=== PATIENT | female | born 1935 | race Caucasian/White ===

== ENCOUNTER 2023-02-03 05:52 | Observation (INO) | payer OTHER ==
[2023-01-30 12:03] LABS: Absolute Lymphocytes (CBC) 1.8 K/uL (0.7-4.9); Hematocrit 42.8 % (36.0-45.0); Lymphocytes % 21.7 % (15.3-44.8); MCV 95.8 fL (80-100); MPV 8.9 fL (7.6-11.3); RBC Red Blood Cell Count 4.47 M/uL (3.86-4.86)
[2023-01-30 12:07] LABS: Protime INR 0.95
[2023-01-30 12:24] LABS: Specific Gravity 1.015 (1.005-1.030); Transitional Epithelial <5 /HPF (None Seen); Urine Bacteria >50 /HPF (<20); Urine Bilirubin NEGATIVE (Negative); Urine Blood Negative (Negative); Urine Clarity Turbid (Clear); Urine Color Yellow (Yellow); Urine Glucose NEGATIVE (Negative); Urine Mucus Slight /HPF (None Seen); Urine Protein TRACE (Negative); Urine Urobilinogen Normal (Normal); Urine WBC Clump Occasional /HPF (None Seen); Urine pH 5.5 (5.0-7.0)
[2023-01-30 12:28] LABS: Albumin 3.8 g/dL (3.4-5.0); Bilirubin Total 0.5 mg/dL (0.2-1.0); Potassium 3.8 mEq/L (3.5-5.1); Protein, Total 8.3 g/dL (6.4-8.2)
--- NOTE | 2023-01-30 13:03 | RAD REPORT ---
EXAM DESCRIPTION: Radha Lynn And Emerald (2 Views)01/30/2023 12:38 pm CLINICAL HISTORY: Preop for hip surgery COMPARISON: None FINDINGS: The lungs are mildly to moderate hyperaerated. The lungs appear clear of acute infiltrate. The heart is borderline enlarged IMPRESSION: No acute abnormalities displayed
--- NOTE | 2023-01-30 13:44 | EKG ---
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
[2023-02-03] MEDS ORDERED: CELECOXIB 100 MG CAPSULE ONE (06:27)
[2023-02-03] MEDS ORDERED: CEFAZOLIN SODIUM 2 GM/VIAL ONE (06:27)
[2023-02-03] MEDS ORDERED: GABAPENTIN 100 MG CAP ONE (06:28)
[2023-02-03] MEDS ORDERED: Ringers Lactate 1,000 ML IV ONE ×2 (06:29→10:16)
[2023-02-03] MEDS ORDERED: ACETAMINOPHEN 500 MG TAB ONE (06:29)
[2023-02-03] MEDS ORDERED: Oxycodone HCl/Acetaminophen 1 TAB TAB ONE (06:29)
[2023-02-03] MEDS ORDERED: LIDOCAINE 2% MPF 5 ML VIAL ONE (06:54)
[2023-02-03] MEDS ORDERED: MIDAZOLAM HCL 2 MG/2 ML INJ ONE (06:54)
[2023-02-03] MEDS ORDERED: LIDOCAINE 1% MPF 5 ML VIAL ONE (06:54)
[2023-02-03] MEDS ORDERED: EPINEPHRINE/PF 1 MG/ML AMP ONE ×2 (06:54→09:04)
[2023-02-03] MEDS ORDERED: FENTANYL CITR 100 MCG/2 ML ONE (06:54)
[2023-02-03] MEDS ORDERED: propofoL 200 MG/20 ML VIAL IV ONE ×2 (06:55→08:33)
[2023-02-03] MEDS ORDERED: BUPIVACAINE 0.75% (PF) 2 ML SP ONE (07:01)
[2023-02-03] MEDS ORDERED: dexAMETHasone 10 MG/ML VIAL ONE ×2 (07:26→09:04)
[2023-02-03] MEDS ORDERED: DIPHENHYDRAMINE 50 MG/ML VIAL ONE (07:27)
[2023-02-03] MEDS: TRANEXAMIC ACID 1,000 MG/10 ML VIAL IV ONE ×2 (07:47→09:45)
[2023-02-03] MEDS ORDERED: NS 0.9% VIAL 30 ML ONE (07:48)
[2023-02-03] MEDS ORDERED: EPHEDRINE SULF 50 MG/ML VIAL ONE (08:33)
[2023-02-03] MEDS ORDERED: BUPIVACAINE 0.25% PF 30 ML VIAL ONE (09:04)
--- NOTE | 2023-02-03 09:08 | RAD REPORT ---
EXAM DESCRIPTION: RAD - Hip Right 1 View - 02/03/2023 8:51 am CLINICAL HISTORY: RT TOTAL HIP REPLACEMENT COMPARISON: No comparisonsHip Right 2 View dated 09/18/2022 TECHNIQUE: Right hip, 2 views. FINDINGS: A right hip prothesis has been placed. The central column of the femoral stem is superiorl y displaced relative to the acetabular cup. Soft tissue gas in the vicinity of the arthroplasty. Ryan tional metallic hardware overlies the central lower pelvis. IMPRESSION: Right hip arthroplasty with some superior positioning of the femoral stem relative to th e acetabular cup as above.
--- NOTE | 2023-02-03 09:43 | RAD REPORT ---
EXAM DESCRIPTION: RAD - Hip Right 1 View - 02/03/2023 9:25 am CLINICAL HISTORY: RT TOTAL HIP COMPARISON: <Comparisons> TECHNIQUE: Right hip, 2 views. FINDINGS: Femoral stem of the right hip prosthesis is removed on the initial image. Revised femoral stem is present on the subsequent images, and appears to be in expected location. Metallic hardware a gain overlies the perineum/left lower pelvis. IMPRESSION: Postoperative right hip arthroplasty as above.
--- NOTE | 2023-02-03 10:05 | P.BOP ---
Preoperative diagnosis: right hip arthritis Postoperative diagnosis: same Primary procedure: right total hip arthoplasty Estimated blood loss: 150 ccs Anesthesia: Spinal Complications: None Transferred to: Recovery Room Condition: Good
[2023-02-03] MEDS ORDERED: ONDANSETRON 4 MG/2 ML VIAL IV PRN (10:06)
[2023-02-03] MEDS ORDERED: ROPIVACAINE HCL 20 ML ONE (10:13)
[2023-02-03] MEDS ORDERED: ROPLVACAINE HCL 20 ML ONE (10:13)
--- OUTSIDE RECORDS SUMMARY | 2023-02-03 10:33 | XMS REPORT | Continuity of Care Document ---
:1935 Author Organization [facility] t Address [address] [place] [address]. [address] [place] [address] Care Team Providers Name Role Phone Vasquez Armendariz Primary Care Physician NELDA RODRIGUEZ Attending Clinician Unavailable NELDA RODRIGUEZ Attending Clinician Unavailable LIYA EDDY Attending Clinician Unavailable Doctor Unassigned, [place] Attending Clinician Unavailable Marilyn Whitfield RN Attending Clinician Unavailable LAURENT FONTANA Attending Clinician Unavailable Bernice Bradley S Attending Clinician Ysabel SCHWAB, Rosa Tejeda Attending Clinician Lisha SCHWAB, Luciano Whitney Attending Clinician Laurent Fontana MD Attending Clinician oLwell Mcdowell MD Attending Clinician Rick Mckenzie MD Attending Clinician Mary Banks MD Attending Clinician ANTOINE SINGLETON Attending Clinician Unavailable Antoine Ledezma Attending Clinician Raquel Martinez Attending Clinician Liya Eddy MD Attending Clinician DANITA YO Attending Clinician Unavailable Lab, Adc Fam Pob I Attending Clinician Unavailable MARY BANKS Attending Clinician Unavailable RAQUEL GRADY Attending Clinician Unavailable LUCIANO RODRIGES Admitting Clinician Unavailable Luciano Rodriges MD Admitting Clinician LAURENT FONTANA Admitting Clinician Unavailable Laurent Fontana MD Admitting Clinician Payers Payer Name Policy Type Policy Number Effective Date Expiration Date S ource Problems Condition Condition Condition Status Onset Resolution Last Treating Co mments Source Name Details Category Date Date Treatment Clinician Date Rectal Rectal Disease Active Univers bleeding bleeding 2-23 ity of 00:00: [place] [address] Medical Branch Total knee Total knee Disease Active U nivers replacemen replacemen 5-20 it y of t status t status 00:00: [place] [address] Medical Branch Primary Primary Disease Active Overview: Univ ers osteoarthr osteoarthr 5-14 Formattin ity of itis of itis of 00:00: g of this [place] right knee right knee 00 note Me dical might be Branch different from the original. 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 00:00: [place] arthroplas arthroplas 00 Me dical ty ty Branch Status Status Disease Active Univers post total post total 17 it y of shoulder shoulder 00:00: [place] arthroplas arthroplas 00 Me dical ty ty Branch Hyperlipid Hyperlipid Disease Active U nivers emia emia ity of [facility] Hypertensi Hypertensi Disease Active U nivers on on ity of [facility] Allergies, Adverse Reactions, Alerts Allergy Allergy Status Severity Reaction(s) Onset Inactive Treating Comm ents Source Name Type Date Date Clinician NO KNOWN Drug Active Univers ALLERGIE Class ity of [facility] Social History Social Habit Start Date Stop Date Quantity Comments Source History SDOH Social Unive rsity of [facility] Med ical Together Branch History SDOH Social Unive rsity of [facility] Branch History SDOH Social Unive rsity of [facility] Medical Membership Branch History SDOH Social Unive rsity of [facility] Medical Meetings Branch Exposure to 2022-12-26 2023-01-05 Not sure University of SARS-CoV-2 (event) 00:00:00 13:54:00 [place] [facility] Alcohol intake 2023-01-05 2023-01-05 Current drinker Unive rsity of 00:00:00 00:00:00 of alcohol [place] [facility] (finding) Branch History SDOH Social 2022-10-30 2022-10-30 5 Unive rsity of Connections Phone 00:00:00 00:00:00 [place] [facility] History SDOH Social 2022-10-30 2022-10-30 3 Unive rsity of [facility] Living 00:00:00 00:00:00 [place] [facility] History SDOH 2022-10-30 2022-10-30 3 University o f Physical Activity 00:00:00 00:00:00 [place] [facility] DPW Branch History SDOH 2022-10-30 2022-10-30 6 University o f Physical Activity 00:00:00 00:00:00 [place] [facility] MPS Branch History SDOH 2022-10-30 2022-10-30 5 University o f Financial 00:00:00 00:00:00 [place] [facility] History SDOH Food 2022-10-30 2022-10-30 1 Univers ity of Worry 00:00:00 00:00:00 [place] [facility] History SDOH Food 2022-10-30 2022-10-30 1 Univers ity of Scarcity 00:00:00 00:00:00 [place] [facility] History SDOH 2022-10-30 2022-10-30 2 University o f Transport Med 00:00:00 00:00:00 [place] [facility] History SDOH 2022-10-30 2022-10-30 2 University o f Transport Non-Med 00:00:00 00:00:00 [place] [facility] History SDOH 2022-10-30 2022-10-30 1 University o f Alcohol Frequency 00:00:00 00:00:00 [place] [facility] History SDOH 2022-10-30 2022-10-30 0 University o f Alcohol Std Drinks 00:00:00 00:00:00 [place] [facility] History SDOH 2022-10-30 2022-10-30 1 University o f Alcohol Binge 00:00:00 00:00:00 [place] [facility] Tobacco use and 2022-08-11 2022-08-11 Smokeless Universit y of exposure 00:00:00 00:00:00 tobacco non-user [facility] Comment 2016-12-10 2016-12-10 Rare Universit y of 00:00:00 00:00:00 [facility] Sex Assigned At [birth year] Universit y of 00:00:00 00:00:00 [facility] Smoking Status Start Date Stop Date Source Never smoked tobacco [facility] Medications Ordered Filled Start Stop Current Ordering Indication Dosage Frequency Signature Comments Components Source Medication Medication Date Date Medication? Clinician (SIG) Name Name estradioL 2022-0 Yes [id number] Apply 1g Univers (ESTRACE) 5-08 vaginally ity o f 0.01 % (0.1 00:00: at bedtime [place] mg/gram) 00 2-3 times Medica l vaginal per week [place] cream estradioL 2022-0 Yes [id number] Apply 1g Univers (ESTRACE) 5-08 vaginally ity o f 0.01 % (0.1 00:00: at bedtime [place] mg/gram) 00 2-3 times Medica l vaginal per week [place] cream estradioL 2022-0 Yes [id number] Apply 1g Univers (ESTRACE) 5-08 vaginally ity o f 0.01 % (0.1 00:00: at bedtime [place] mg/gram) 00 2-3 times Medica l vaginal per week [place] cream cefpodoxime 2022-0 Yes 100mg Take 1 Uni vers 100 mg 4-30 tablet by ity of tablet 00:00: mouth in [place] [address] the Medical morning Branch and 1 tablet in the evening. cefpodoxime 2023-0 Yes 100mg Take 1 Uni vers 100 mg 4-30 tablet by ity of tablet 00:00: mouth in [place] 00 the Medical morning Branch and 1 tablet in the evening. cefpodoxime 2023-0 Yes 100mg Take 1 Uni vers 100 mg 4-30 tablet by ity of tablet 00:00: mouth in [place] 00 the Medical morning Branch and 1 tablet in the evening. multivitami 2022-0 Yes 1{tbl} Take 1 Un willem n, 3-05 tablet by ity of [place]-minerals 13:39: mouth [place] (COMPLETE 51 daily. Medical MULTIVITAMI Branch N) tablet cholecalcif 2022-0 Yes 5000U Take 5,000 Univers kiki, 3-05 Units by ity of vitamin D3, 13:39: mouth [place] (VITAMIN 51 daily. Medical D3) 1,000 Branch unit tablet aspirin 81 2023-0 Yes 81mg Take 81 mg U nivers mg EC 3-05 by mouth ity of tablet 13:39: daily. [place] [address] Medical Branch amLODIPine 2023-0 Yes 5mg Take 1 Unive rs 5 mg tablet 3-05 tablet by ity of 13:39: mouth in [place] [address] the Medical morning. Branch multivitami 2023-0 Yes 1{tbl} Take 1 Un willem n, 3-05 tablet by ity of [place]-minerals 13:39: mouth [place] (COMPLETE 51 daily. Medical MULTIVITAMI Branch N) tablet cholecalcif 2023-0 Yes 5000U Take 5,000 Univers kiki, 3-05 Units by ity of vitamin D3, 13:39: mouth [place] (VITAMIN 51 daily. Medical D3) 1,000 Branch unit tablet aspirin 81 2023-0 Yes 81mg Take 81 mg U nivers mg EC 3-05 by mouth ity of tablet 13:39: daily. [place] [address] Medical Branch amLODIPine 2023-0 Yes 5mg Take 1 Unive rs 5 mg tablet 3-05 tablet by ity of 13:39: mouth in [place] [address] the Medical morning. Branch multivitami 2023-0 Yes 1{tbl} Take 1 Un willem n, 3-05 tablet by ity of [place]-minerals 13:39: mouth [place] (COMPLETE 51 daily. Medical MULTIVITAMI Branch N) tablet cholecalcif 2023-0 Yes 5000U Take 5,000 Univers kiki, 3-05 Units by ity of vitamin D3, 13:39: mouth [place] (VITAMIN 51 daily. Medical D3) 1,000 Branch unit tablet aspirin 81 2023-0 Yes 81mg Take 81 mg U nivers mg EC 3-05 by mouth ity of tablet 13:39: daily. [place] [address] Medical Branch amLODIPine 2023-0 Yes 5mg Take 1 Unive rs 5 mg tablet 3-05 tablet by ity of 13:39: mouth in [place] [address] the Medical morning. Branch multivitami 2023-0 Yes 1{tbl} Take 1 Un willem n, 3-05 tablet by ity of [place]-minerals 13:39: mouth [place] (COMPLETE 51 daily. Medical MULTIVITAMI Branch N) tablet cholecalcif 2023-0 Yes 5000U Take 5,000 Univers kiki, 3-05 Units by ity of vitamin D3, 13:39: mouth [place] (VITAMIN 51 daily. Medical D3) 1,000 Branch unit tablet aspirin 81 2023-0 Yes 81mg Take 81 mg U nivers mg EC 3-05 by mouth ity of tablet 13:39: daily. [place] [address] Medical Branch amLODIPine 2023-0 Yes 5mg Take 1 Unive rs 5 mg tablet 3-05 tablet by ity of 13:39: mouth in [place] [address] the Medical morning. Branch multivitami 2023-0 Yes 1{tbl} Take 1 Un willem n, 3-05 tablet by ity of [place]-minerals 13:39: mouth [place] (COMPLETE 51 daily. Medical MULTIVITAMI Branch N) tablet cholecalcif 2023-0 Yes 5000U Take 5,000 Univers kiki, 3-05 Units by ity of vitamin D3, 13:39: mouth [place] (VITAMIN 51 daily. Medical D3) 1,000 Branch unit tablet aspirin 81 2023-0 Yes 81mg Take 81 mg U nivers mg EC 3-05 by mouth ity of tablet 13:39: daily. [place] [address] Medical Branch amLODIPine 2023-0 Yes 5mg Take 1 Unive rs 5 mg tablet 3-05 tablet by ity of 13:39: mouth in [place] [address] the Medical morning. Branch multivitami 2023-0 Yes 1{tbl} Take 1 Un willem n, 3-05 tablet by ity of [place]-minerals 13:39: mouth [place] (COMPLETE 51 daily. Medical MULTIVITAMI Branch N) tablet cholecalcif 2023-0 Yes 5000U Take 5,000 Univers kiki, 3-05 Units by ity of vitamin D3, 13:39: mouth [place] (VITAMIN 51 daily. Medical D3) 1,000 Branch unit tablet aspirin 81 2023-0 Yes 81mg Take 81 mg U nivers mg EC 3-05 by mouth ity of tablet 13:39: daily. [place] [address] Medical Branch amLODIPine 2023-0 Yes 5mg Take 1 Unive rs 5 mg tablet 3-05 tablet by ity of 13:39: mouth in [place] [address] the Medical morning. Branch multivitami 2023-0 Yes 1{tbl} Take 1 Un willem n, 3-05 tablet by ity of tx-minerals 13:39: mouth [place] (COMPLETE 51 daily. Medical MULTIVITAMI Branch N) tablet cholecalcif 2022-0 Yes 5000U Take 5,000 Univers kiki, 3-05 Units by ity of vitamin D3, 13:39: mouth [place] (VITAMIN 51 daily. Medical D3) 1,000 Branch unit tablet aspirin 81 3-0 Yes 81mg Take 81 mg U nivers mg EC 3-05 by mouth ity of tablet 13:39: daily. [place] [address] Medical Branch amLODIPine 2022-0 Yes 5mg Take 1 Unive rs 5 mg tablet 3-05 tablet by ity of 13:39: mouth in [place] [address] the Medical morning. Branch multivitami 0 Yes 1{tbl} Take 1 Un willem n, 3-05 tablet by ity of [place]-minerals 13:39: mouth [place] (COMPLETE 51 daily. Medical MULTIVITAMI Branch N) tablet cholecalcif 2022-0 Yes 5000U Take 5,000 Univers kiki, 3-05 Units by ity of vitamin D3, 13:39: mouth [place] (VITAMIN 51 daily. Medical D3) 1,000 Branch unit tablet aspirin 81 2022-0 Yes 81mg Take 81 mg U nivers mg EC 3-05 by mouth ity of tablet 13:39: daily. [address] Branch amLODIPine 2022-0 Yes 5mg Take 1 Unive rs 5 mg tablet 3-05 tablet by ity of 13:39: mouth in [place] [address] the Medical morning. Branch simethicone 2022- No PRN, Unive rs (GAS RELIEF 10-31 Starting ity of (SIMETHICON 18:55: 20:40 on Thu [place] as E)) 40 00 :16 10/31/22 at Medical mg/0.6 mL 1255, Branch drops Until Thu10/31/22 at 1440, Routine, Intra-op KCL 2022- No 40meq 40 mEq, Univers (KLOR-CON 10-31 Oral, ity of M20) tablet 15:15: 14:37 ONCE, 1 [place] 40 mEq 00 :00 dose, On Medical 10/31/22 Branch at 0915, Routine KCL 2022- No 40meq 40 mEq, Univers (KLOR-CON 3-03 03-03 Oral, ity of M20) tablet 15:15: 14:37 ONCE, 1 [place] 40 mEq 00 :00 dose, On Medical 10/31/22 Branch at 0915, Routine NaCl 0.9% 2022-0 Yes 10mL 10 mL, Univer s (NS) 10-30 Slow IV ity of injection 22:20: Push, PRN, [place] 10 mL 31 Starting Medical on [place] Branch 10/30/22 at 1620, Until Discontinu ed, Routine, line maintenanc e NaCl 0.9% 2022-0 202- No 10mL 10 mL, Unive rs (NS) 10-30-05 Slow IV ity of injection 22:20: 21:39 Push, PRN, [place] 10 mL 31 :53 Starting Medical on [place] Branch 10/30/22 at 1620, Until 11/02/22 at 1539, Routine, line maintenanc e ondansetron Yes 4mg 4 mg, Slow Univers (ZOFRAN 10-30 IV Push, ity of (PF)) 19:46: Q6HPRN, [place] injection 4 22 Starting Medi johnna mg on [place] Branch 10/30/22 at 1346, Until Discontinu ed, Routine, Nausea and Vomiting (N/V) ondansetron 0 2022- No 4mg 4 mg, Slow Univers (ZOFRAN 10-3005 IV Push, ity of (PF)) 19:46: 21:39 Q6HPRN, [place] injection 4 22 :53 Starting Medi johnna mg on [facility] Branch 10/30/22 at 1346, Until 11/02/22 at 1539, Routine, Nausea and Vomiting (N/V) peg-electro 2022-0 2022- No 4000mL 4,000 mL, [facility] lyte soln 10-30 03-04 Oral, PRN ity of (GOLYTELY) 19:46: 15:37 - SEE [place] [id number] 22 :33 INSTRUCTIO Ok dical .74 -5.86 NS, Branch gram Starting solution on Ines 4,000 mL 10/30/22 at 1346, Until 11/01/22 at 0937, Routine, Bowel Prep, colonoscop y peg-electro 2022-0 2022- No 4000mL 4,000 mL, [facility] lyte [facility] 10-3004 Oral, PRN ity of (GOLYTELY) 19:46: 15:37 - SEE [place] [id number] 22 :33 INSTRUCTIO Ok dical .74 -5.86 NS, Branch gram Starting solution on [place] 4,000 mL 10/30/22 at 1346, Until 11/01/22 at 0937, Routine, Bowel Prep, colonoscop y pantoprazol Yes 40mg 40 mg, Univ ers e 10-30 Slow IV ity of (PROTONIX) 14:00: Push, [place] injection 00 Q12H, Medical 40 mg First dose Branch on Ines 10/30/22 at 0800, Until Discontinu ed pantoprazol 2022- No 40mg 40 mg, Uni vers e 10-30 Slow IV ity of (PROTONIX) 14:00: 21:39 Push, [place] injection 00 :53 Q12H, Medical 40 mg First dose Branch on Ines 10/30/22 at 0800, Until Discontinu ed NaCl 0.9% 2022- No 250mL at 999 [facility] [place] ers (NS) bolus 10-30 03-02 mL/hr, 250 it y of infusion 12:00: 12:10 mL, IV [place] 250 mL 00 :09 Piggyback, Medical ONCE, 1 Branch dose, On Ines 10/30/22 at 0600, STAT NaCl 0.9% 2022-0 2022- No 250mL at 999 [facility] [place] ers (NS) bolus 10-30 03-02 mL/hr, 250 it y of infusion 12:00: 12:10 mL, IV [place] 250 mL 00 :09 Piggyback, Medical ONCE, 1 Branch dose, On Ines 10/30/22 at 0600, STAT acetaminoph 2022-0 Yes 650mg 650 mg, Un willem en 10-30 Oral, ity of (TYLENOL) 11:13: Q6HPRN, [place] tablet 650 01 Starting Medic al mg on In[place] Branch 10/30/22 at 0513, Until Discontinu ed, Routine, Pain (scale 1-3) acetaminoph 0 2022- No 650mg 650 mg, U nivers en 10-3005 Oral, ity of (TYLENOL) 11:13: 21:39 Q6HPRN, [place] tablet 650 01 :53 Starting Medic al mg on [facility] Branch 10/30/22 at 0513, Until 11/02/22 at 1539, Routine, Pain (scale 1-3) KCL 20 2022- No 40meq 40 mEq, Univer s mEq/15 mL 10-30 Oral, ity of solution 40 09:00: 10:43 ONCE, 1 [place] mEq 00 :00 dose, On Medical [facility] 10/30/22 Branch at 0300, Routine KCL 20 2022- No 40meq 40 mEq, Univer s mEq/15 mL 10-30 Oral, ity of solution 40 09:00: 10:43 ONCE, 1 [place] mEq 00 :00 dose, On Medical [facility] 10/30/22 Branch at 0300, Routine multivitami Yes 1{tbl} Take 1 Un willem n, 2-27 tablet by ity of tx-minerals 17:23: mouth [place] (COMPLETE daily. Medical MULTIVITAMI Branch N) tablet cholecalcif 2022-0 Yes 5000U Take 5,000 Univers kiki, 2-27 Units by ity of vitamin D3, 17:23: mouth [place] (VITAMIN 02 daily. Medical D3) 1,000 Branch unit tablet aspirin 81 2022-0 Yes 81mg Take 81 mg U nivers mg EC 2-27 by mouth ity of tablet 17:23: daily. [place] [facility] amLODIPine Yes 5mg Take 5 mg Un willem 5 mg tablet 2-27 by mouth ity of 17:23: daily. [place] [facility] multivitami Yes 1{tbl} Take 1 Un willem n, 2-27 tablet by ity of tx-minerals 17:23: mouth [place] (COMPLETE 02 daily. Medical MULTIVITAMI Branch N) tablet cholecalcif 2022-0 Yes 5000U Take 5,000 Univers kiki, 2-27 Units by ity of vitamin D3, 17:23: mouth [place] (VITAMIN 02 daily. Medical D3) 1,000 Branch unit tablet aspirin 81 2022-0 Yes 81mg Take 81 mg U nivers mg EC 2-27 by mouth ity of tablet 17:23: daily. [place] [facility] Branch amLODIPine Yes 5mg Take 5 mg Un willem 5 mg tablet 10-27 by mouth ity of 17:23: daily. [address] Branch VIT A/VIT 2022- No 1{tbl} Take 1 Uni vers C/VIT 10-27 tablet by ity of E/ZINC/RONIT 14:55: 00:00 [place] (OCUVITE 14 :00 daily. Medica l PRESERVISIO Branch N ORAL) Fish 2022- No 2{capsu Take 2 Univers Oil-DHA-EPA 10-27 le} capsules ity of 1,200-144-2 14:55: 00:00 by mouth [place] 16 mg Cap 14 :00 daily. [facility] Branch gluc-paul-m 2022- No 2{tbl} Take 2 U nivers sm#1-C-alhaji 10-27 tablets by i ty of -luca-bor 14:55: 00:00 mouth [place] (OSTEO 14 :00 daily. [facility] BI-FLEX Branch TRIPLE STRENGTH) 750 mg-644 mg- 30 mg-1 mg Tab KCL 2022- No 40meq 40 mEq, Univers (KLOR-CON 10-27 Oral, ity of M20) tablet 02:02: 03:31 ONCE, 1 [place] 40 mEq 00 :00 dose, On [facility] 10/26/22 at 2014, Routine pantoprazol 2022-0 Yes [id number] 40mg Take 1 Univers e 40 mg EC 2-27 tablet by ity of tablet 00:00: mouth in [place] [address] the Medical morning Branch and 1 tablet in the evening. pantoprazol 2022-0 Yes [id number] 40mg Take 1 Univers e 40 mg EC 2-27 tablet by ity of tablet 00:00: mouth in [place] [address] the [facility] morning Branch and 1 tablet in the evening. pantoprazol 2022-0 Yes [id number] 40mg Take 1 Univers e 40 mg EC 2-27 tablet by ity of tablet 00:00: mouth in [place] [address] the [facility] morning Branch and 1 tablet in the evening. pantoprazol 2022-0 Yes [id number] 40mg Take 1 Univers e 40 mg EC 2-27 tablet by ity of tablet 00:00: mouth in [place] [address] the [facility] morning [place] and 1 tablet in the evening. pantoprazol 2023-0 Yes [id number] 40mg Take 1 Univers e 40 mg EC 2-27 tablet by ity of tablet 00:00: mouth in [place] [address] the [facility] morning [place] and 1 tablet in the evening. pantoprazol 2023-0 Yes [id number] 40mg Take 1 Univers e 40 mg EC 2-27 tablet by ity of tablet 00:00: mouth in [place] [address] the [facility] morning [place] and 1 tablet in the evening. pantoprazol 3-0 Yes [id number] 40mg Take 1 Univers e 40 mg EC 2-27 tablet by ity of tablet 00:00: mouth in [place] [address] the [facility] morning [place] and 1 tablet in the evening. pantoprazol 3-0 Yes [id number] 40mg Take 1 Univers e 40 mg EC 2-27 tablet by ity of tablet 00:00: mouth in [address] morning [place] and 1 tablet in the evening. pantoprazol 3-0 Yes [id number] 40mg Take 1 Univers e 40 mg EC 2-27 tablet by ity of tablet 00:00: mouth in [address] morning [place] and 1 tablet in the evening. pantoprazol 3-0 Yes [id number] 40mg Take 1 Univers e 40 mg EC 2-27 tablet by ity of tablet 00:00: mouth in [address] and 1 tablet in the evening. potassium 2022-2022- No 20meq 20 mEq, IV Univers chloride in 10-26 Piggyback, i ty of water (KCL) 14:00: 19:32 Q2H, 2 [place] as 20 mEq/100 00 :00 doses, Medical mL RTU IVPB First dose Br anch 20 mEq on 10/26/22 at 0800, Last dose on 10/26/22 at 1000, 100 mL KCL 2022-2022- No 40meq 40 mEq, Univers (KLOR-CON 10-26 Oral, ity of M20) tablet 14:00: 13:33 ONCE, 1 [place] 40 mEq 00 :00 dose, On [facility] Branch 10/26/22 at 0800, Routine metoprolol 2022-2022- No 12.5mg 12.5 mg, Univers tartrate 10-26 Oral, BID, ity of (LOPRESSOR) 14:00: 14:00 First dose [place] tablet 12.5 00 :12 on [place] Medica l mg 10/26/22 at Branch 0800, Until Discontinu ed, Routine magnesium 2022-0 2022- No 4g 4 g, IV Univ ers sulfate in 10-26 Piggyback, it y of water 4 13:15: 15:45 at 25 [place] gram/50 mL 00 :00 mL/hr Medical (8 %) IV Administer Branc h Piggyback 4 over 120 g Minutes, ONCE, 1 dose, On [place] 10/26/22 at 0730, NOLBERTO metoprolol 0 Yes 5mg 5 mg, Slow U nivers (LOPRESSOR) 10-26 IV Push, ity of injection 5 09:16: PRN, [place] mg 23 Starting Medical on [facility] 10/26/22 at 0316, Until Discontinu ed, Routine, Surgery/Pr ocedure, afib rvr metoprolol 0 2022- No 5mg 5 mg, Unive rs (LOPRESSOR) 10-26 Intravenou i ty of injection 5 09:15: 09:26 s, ONCE, 1 [place] mg 00 :00 dose, On [facility] 10/26/22 at 0330, Routine metoprolol 2022-0 2022- No 5mg 5 mg, Unive rs (LOPRESSOR) 10-26 Intravenou i ty of injection 5 08:58: 09:05 s, ONCE, 1 [place] mg 00 :00 dose, On [facility] 10/26/22 at 0300, Routine simvastatin 2022-0 Yes 10mg 10 mg, Univ ers (ZOCOR) 2-25 Oral, QHS, ity of tablet 10 03:00: First dose [place] mg 00 on Thu [facility] 10/24/22 at Branch 2100, Until Discontinu ed, Routine bisacodyL 2022-0 Yes 10mg 10 mg, Univer s (DULCOLAX) 2-24 Oral, ity of tablet 10 22:30: PRE-PROCED [place] mg 00 URE ONCE, Medical 1 dose, Branch Starting on Thu10/24/22 at 1630, Until Discontinu ed, Routine, Bowel Prep, Colonoscop y lactated 2022-0 2023- No 1000mL at 999 Univ ers ringers IV 2-24 02-24 mL/hr, ity of infusion 21:45: 22:22 1,000 mL, [place] as 1,000 mL 00 :15 Intravenou Medic al s, ONCE, 1 Branch dose, On Thu10/24/22 at 1545, Routine bisacodyL 2022-0 Yes 10mg 10 mg, Univer s (DULCOLAX) 2-24 Oral, ity of tablet 10 19:00: PRE-PROCED [place] mg 00 URE ONCE, Medical 1 dose, Branch Starting on Thu10/24/22 at 1300, Until Discontinu ed, Routine, Bowel Prep, Colonoscop y NaCl 0.9% 2022-0 Yes 10mL 10 mL, Univer s (NS) 2-24 Slow IV ity of injection 18:01: Push, PRN, [place] 10 mL 28 Starting Medical on Thu Branch 10/24/22 at 1201, Until Discontinu ed, Routine, line maintenanc e lidocaine 2022-0 Yes 5mL 5 mL, Univers 1% (PF) 224 Subcutaneo ity of (XYLOCAINE) 18:01: us, PRN, [place] injection 5 28 Starting Medi johnna mL on Thu Branch 10/24/22 at 1201, Until Discontinu ed, Routine, Local anesthesia peg-electro 2022-0 Yes 4000mL 4,000 mL, Univers lyte soln 2-24 Oral, PRN ity o f (GOLYTELY) 15:34: - SEE [place] 236-22.74-6 08 INSTRUCTIO Ok dical .74 -5.86 NS, Branch gram Starting solution on Thu 4,000 mL 10/24/22 at 0934, Until Discontinu ed, Routine, Bowel Prep, colonoscop y ondansetron 2022-0 Yes 4mg 4 mg, Slow Univers (ZOFRAN 2-24 IV Push, ity of (PF)) 15:34: Q6HPRN, [place] injection 4 08 Starting Medi johnna mg on Thu Branch 10/24/22 at 0934, Until Discontinu ed, Routine, Nausea and Vomiting (N/V) SERTraline 2022-0 Yes 25mg 25 mg, Unive rs (ZOLOFT) 2-24 Oral, ity of tablet 25 15:00: DAILY, [place] mg 00 First dose Medical on Thu Branch 10/24/22 at 0900, Until Discontinu ed, Routine cholecalcif Yes 5000U 5,000 [facility] [place] ers kiki 2-24 Units, ity of (vitamin 15:00: Oral, [place] D3) tablet 00 DAILY, Medical 5,000 Units First dose Br anch on Thu10/24/22 at 0900, Until Discontinu ed, Routine pantoprazol Yes 40mg 40 mg, Univ ers e 2-24 Slow IV ity of (PROTONIX) 03:30: Push, [place] injection 00 Q12H, Medical 40 mg First dose Branch on Ines 10/23/22 at 2130, Until Discontinu ed acetaminoph Yes 650mg 650 mg, Un willem en 10-24 Oral, ity of (TYLENOL) 03:10: Q6HPRN, [place] tablet 650 06 Starting Medic al mg on [place] Branch 10/23/22 at 2110, Until Discontinu ed, Routine, Pain (scale 1-3) iopamidol 2022- No [id number] 85mL 85 mL, U nivers (ISOVUE 10-23 Intravenou ity o f 370-500 mL) 23:15: 23:15 s, ONCE, 1 [place] injection 00 :00 dose, On Medica l 85 mL [place]es Branch 10/23/22 at 1715, Routine cefTRIAXone 2021-08- No [id number] 1000mg Univers (ROCEPHIN) 10-12-12 ity of injection 17:45: 16:54 [place] 1,000 mg 00 :00 Medical Branch cefTRIAXone 2021-08- No [id number] 1000mg 1,000 mg, Univers (ROCEPHIN) - 12-12 Intramuscu it y of injection 17:45: 16:54 lar, ONCE, [place] 1,000 mg 00 :00 1 dose, On Medic al Mon Branch 08/11/22 at 1145, NOLBERTO
Re ason for Anti-Infec tive: Documented Infection< br>Documen luis Infection Site: Urine
D uration of Therapy: Other (see Comments) cefTRIAXone 2021-08- No [id number] 1000mg Univers (ROCEPHIN) 10-12 ity of injection 17:45: 16:54 [place] 1,000 mg 00 :00 [facility] cefTRIAXone 2021-08- No [id number] 1000mg 1,000 mg, Univers (ROCEPHIN) 10-12 Intramuscu it y of injection 17:45: 16:54 lar, ONCE, [place] 1,000 mg 00 :00 1 dose, On Medic [facility] 08/11/22 at 1145, NOLBERTO
Re ason for Anti-Infec tive: Documented Infection< br>Documen luis Infection Site: Urine
D uration of Therapy: Other (see Comments) cefTRIAXone 2021-08- No [id number] 1000mg [facility] (ROCEPHIN) 10-12 ity of injection 17:45: 16:54 [place] 1,000 mg 00 :00 [facility] cefTRIAXone 2021-08- No [id number] 1000mg 1,000 mg, Univers (ROCEPHIN) 10-12 Intramuscu it y of injection 17:45: 16:54 [place], ONCE, [place] 1,000 mg 00 :00 1 dose, On [facility] 08/11/22 at 1145, NOLBERTO
Re ason for Anti-Infec tive: Documented Infection< br>Documen luis Infection Site: Urine
D uration of Therapy: Other (see Comments) estradioL 2021-08 Yes [id number] Apply 1g [facility] (ESTRACE) 2-12 vaginally ity o f 0.01 % (0.1 00:00: at bedtime [place] mg/gram) 00 2 times Medical vaginal per week Branch cream vibegron 2021-08 Yes [id number] 75mg Take 75 mg [facility] (GEMTESA) 2-12 by mouth ity of 75 mg Tab 00:00: in the [place] 00 morning. [facility] estradioL 2021-08 Yes [id number] Apply 1g [facility] (ESTRACE) 2-12 vaginally ity o f 0.01 % (0.1 00:00: at bedtime [place] mg/gram) 00 2 times Medical vaginal per week Branch cream vibegron 2021-08 Yes [id number] 75mg Take 75 mg [facility] (GEMTESA) 2-12 by mouth ity of 75 mg Tab 00:00: in the [place] 00 morning. Medical Branch estradioL 2021-08 Yes [id number] Apply 1g [facility] (ESTRACE) 2-12 vaginally ity o f 0.01 % (0.1 00:00: at bedtime [place] mg/gram) 00 2 times Medical vaginal per week Branch cream vibegron 2021-08 Yes [id number] 75mg Take 75 mg [facility] (GEMTESA) 2-12 by mouth ity of 75 mg Tab 00:00: in the [place] 00 morning. Medical Branch estradioL 2021-08 Yes [id number] Apply 1g [facility] (ESTRACE) 2-12 vaginally ity o f 0.01 % (0.1 00:00: at bedtime [place] mg/gram) 00 2 times Medical vaginal per week Branch cream vibegron 2021-08 Yes [id number] 75mg Take 75 mg [facility] (GEMTESA) 2-12 by mouth ity of 75 mg Tab 00:00: in the [place] 00 morning. Medical Branch estradioL 2021-08 Yes [id number] Apply 1g [facility] (ESTRACE) 2-12 vaginally ity o f 0.01 % (0.1 00:00: at bedtime [place] mg/gram) 00 2 times Medical vaginal per week Branch cream vibegron 2021-08 Yes [id number] 75mg Take 75 mg [facility] (GEMTESA) 2-12 by mouth ity of 75 mg Tab 00:00: in the [place] 00 morning. Medical Branch estradioL 2021-08 Yes [id number] Apply 1g [facility] (ESTRACE) 2-12 vaginally ity o f 0.01 % (0.1 00:00: at bedtime [place] mg/gram) 00 2 times Medical vaginal per week Branch cream vibegron 2021-08 Yes [id number] 75mg Take 75 mg [facility] (GEMTESA) 2-12 by mouth ity of 75 mg Tab 00:00: in the [place] 00 morning. Medical Branch estradioL 2021-08 Yes [id number] Apply 1g [facility] (ESTRACE) 2-12 vaginally ity o f 0.01 % (0.1 00:00: at bedtime [place] mg/gram) 00 2 times Medical vaginal per week Branch cream vibegron 2021-08 Yes [id number] 75mg Take 75 mg [facility] (GEMTESA) 2-12 by mouth ity of 75 mg Tab 00:00: in the [place] 00 morning. Medical Branch estradioL 2021-08 Yes [id number] Apply 1g [facility] (ESTRACE) 2-12 vaginally ity o f 0.01 % (0.1 00:00: at bedtime [place] mg/gram) 00 2 times Medical vaginal per week Branch cream vibegron 2021-08 Yes [id number] 75mg Take 75 mg [facility] (GEMTESA) 2-12 by mouth ity of 75 mg Tab 00:00: in the [place] 00 morning. Medical Branch estradioL 2021-08 Yes [id number] Apply 1g [facility] (ESTRACE) 2-12 vaginally ity o f 0.01 % (0.1 00:00: at bedtime [place] mg/gram) 00 2 times Medical vaginal per week Branch cream vibegron 2021-08 Yes [id number] 75mg Take 75 mg [facility] (GEMTESA) 2-12 by mouth ity of 75 mg Tab 00:00: in the [place] 00 morning. Medical Branch estradioL 2021-08 Yes [id number] Apply 1g [facility] (ESTRACE) 2-12 vaginally ity o f 0.01 % (0.1 00:00: at bedtime [place] mg/gram) 00 2 times Medical vaginal per week Branch cream vibegron 2021-08 Yes [id number] 75mg Take 75 mg [facility] (GEMTESA) 2-12 by mouth ity of 75 mg Tab 00:00: in the [place] 00 morning. Medical Branch estradioL 2021-08 Yes [id number] Apply 1g [facility] (ESTRACE) 2-12 vaginally ity o f 0.01 % (0.1 00:00: at bedtime [place] mg/gram) 00 2 times Medical vaginal per week Branch cream vibegron 2021-08 Yes [id number] 75mg Take 75 mg Univers (GEMTESA) 2-12 by mouth ity of 75 mg Tab 00:00: in the [place] 00 morning. Medical Branch estradioL 2021-08 Yes [id number] Apply 1g [facility] (ESTRACE) 2-12 vaginally ity o f 0.01 % (0.1 00:00: at bedtime [place] mg/gram) 00 2 times Medical vaginal per week Branch cream vibegron 2021-08 Yes [id number] 75mg Take 75 mg Univers (GEMTESA) 2-12 by mouth ity of 75 mg Tab 00:00: in the [place] 00 morning. Medical Branch estradioL 2021-08 Yes [id number] Apply 1g [facility] (ESTRACE) 2-12 vaginally ity o f 0.01 % (0.1 00:00: at bedtime [place] mg/gram) 00 2 times Medical vaginal per week Branch cream vibegron 2021-08 Yes [id number] 75mg Take 75 mg [facility] (GEMTESA) 2-12 by mouth ity of 75 mg Tab 00:00: in the [place] 00 morning. Medical Branch estradioL 2021-08 Yes [id number] Apply 1g [facility] (ESTRACE) 2-12 vaginally ity o f 0.01 % (0.1 00:00: at bedtime [place] mg/gram) 00 2 times Medical vaginal per week Branch cream vibegron 2021-08 Yes [id number] 75mg Take 75 mg Univers (GEMTESA) 2-12 by mouth ity of 75 mg Tab 00:00: in the [place] 00 morning. Medical Branch estradioL 2021-08 Yes [id number] Apply 1g [facility] (ESTRACE) 2-12 vaginally ity o f 0.01 % (0.1 00:00: at bedtime [place] mg/gram) 00 2 times Medical vaginal per week Branch cream vibegron 2021-08 Yes [id number] 75mg Take 75 mg [facility] (GEMTESA) 2-12 by mouth ity of 75 mg Tab 00:00: in the [place] 00 morning. Medical Branch vibegron Yes [id number] 75mg Take 75 mg [facility] (GEMTESA) 4-25 by mouth ity of 75 mg Tab 00:00: daily. [place] [facility] Branch estradioL Yes [id number] Apply 1g [facility] (ESTRACE) 4-25 vaginally ity o f 0.01 % (0.1 00:00: at bedtime [place] mg/gram) 00 every Medical vaginal night for Branch cream 2 weeks and then apply 1g vaginally at bedtime times per week vibegron Yes [id number] 75mg Take 75 mg [facility] (GEMTESA) 4-25 by mouth ity of 75 mg Tab 00:00: daily. [place] [facility] Branch estradioL Yes [id number] Apply 1g [facility] (ESTRACE) 4-25 vaginally ity o f 0.01 % (0.1 00:00: at bedtime [place] mg/gram) 00 every Medical vaginal night for Branch cream 2 weeks and then apply 1g vaginally at bedtime times per week vibegron 0 Yes [id number] 75mg Take 75 mg Univers (GEMTESA) 4-25 by mouth ity of 75 mg Tab 00:00: daily. [place] [facility] estradioL 0 Yes [id number] Apply 1g [facility] (ESTRACE) 4-25 vaginally ity o f 0.01 % (0.1 00:00: at bedtime [place] mg/gram) 00 every Medical vaginal night for Branch cream 2 weeks and then apply 1g vaginally at bedtime times per week vibegron Yes [id number] 75mg Take 75 mg Univers (GEMTESA) 4-25 by mouth ity of 75 mg Tab 00:00: daily. [place] [facility] estradioL 0 Yes [id number] Apply 1g Univers (ESTRACE) 4-25 vaginally ity o f 0.01 % (0.1 00:00: at bedtime [place] mg/gram) 00 every Medical vaginal night for Branch cream 2 weeks and then apply 1g vaginally at bedtime times per week vibegron Yes [id number] 75mg Take 75 mg Univers (GEMTESA) 4-25 by mouth ity of 75 mg Tab 00:00: daily. [place] [facility] estradioL 0 Yes [id number] Apply 1g [facility] (ESTRACE) 4-25 vaginally ity o f 0.01 % (0.1 00:00: at bedtime [place] mg/gram) 00 every Medical vaginal night for Branch cream 2 weeks and then apply 1g vaginally at bedtime times per week vibegron 0 Yes [id number] 75mg Take 75 mg Univers (GEMTESA) 4-25 by mouth ity of 75 mg Tab 00:00: daily. [place] [facility] estradioL 0 Yes [id number] Apply 1g [facility] (ESTRACE) 4-25 vaginally ity o f 0.01 % (0.1 00:00: at bedtime [place] mg/gram) 00 every Medical vaginal night for Branch cream 2 weeks and then apply 1g vaginally at bedtime times per week vibegron Yes [id number] 75mg Take 75 mg Univers (GEMTESA) 4-25 by mouth ity of 75 mg Tab 00:00: daily. [place] [facility] Branch estradioL Yes [id number] Apply 1g [facility] (ESTRACE) 4-25 vaginally ity o f 0.01 % (0.1 00:00: at bedtime [place] mg/gram) 00 every Medical vaginal night for Branch cream 2 weeks and then apply 1g vaginally at bedtime times per week vibegron Yes [id number] 75mg Take 75 mg Univers (GEMTESA) 4-25 by mouth ity of 75 mg Tab 00:00: daily. [place] [facility] Branch estradioL Yes [id number] Apply 1g [facility] (ESTRACE) 4-25 vaginally ity o f 0.01 % (0.1 00:00: at bedtime [place] mg/gram) 00 every Medical vaginal night for Branch cream 2 weeks and then apply 1g vaginally at bedtime times per week vibegron 2022- No [id number] 75mg Take 75 mg Univers (GEMTESA) 4-25 -27 by mouth ity o f 75 mg Tab 00:00: 00:00 daily. [place] 00 :00 Medical Branch estradioL 2022- No [id number] Apply 1g [facility] (ESTRACE) 4-25 -27 vaginally ity of 0.01 % (0.1 00:00: 00:00 at bedtime [place] mg/gram) 00 :00 every Medical vaginal night for Branch cream 2 weeks and then apply 1g vaginally at bedtime times per week multivitami Yes 1{tbl} Take 1 Un [place] n, 3-28 tablet by ity of tx-minerals 11:25: mouth [place] (COMPLETE 30 daily. Medical MULTIVITAMI Branch N) tablet amLODIPine Yes 5mg Take 5 mg Un willem 5 mg tablet 3-28 by mouth ity of 11:25: daily. [place] [address] Medical Branch multivitami Yes 1{tbl} Take 1 Un [place] n, 3-28 tablet by ity of tx-minerals 11:25: mouth [place] (COMPLETE 30 daily. Medical MULTIVITAMI Branch N) tablet amLODIPine 2022-0 Yes 5mg Take 5 mg Un [place] 5 mg tablet 3-28 by mouth ity of 11:25: daily. [place] [address] Medical Branch multivitami 2021-0 Yes 1{tbl} Take 1 Un [place] n, 3-28 tablet by ity of tx-minerals 11:25: mouth [place] (COMPLETE 30 daily. Medical MULTIVITAMI Branch N) tablet amLODIPine 2022-0 Yes 5mg Take 5 mg Un [place] 5 mg tablet 3-28 by mouth ity of 11:25: daily. [place] [address] Medical Branch multivitami 2021-0 Yes 1{tbl} Take 1 Un [place] n, 3-28 tablet by ity of tx-minerals 11:25: mouth [place] (COMPLETE 30 daily. Medical MULTIVITAMI Branch N) tablet amLODIPine 2-0 Yes 5mg Take 5 mg Un [place] 5 mg tablet 3-28 by mouth ity of 11:25: daily. [place] [address] Medical Branch multivitami Yes 1{tbl} Take 1 Un [place] n, 3-28 tablet by ity of tx-minerals 11:25: mouth [place] (COMPLETE 30 daily. Medical MULTIVITAMI Branch N) tablet amLODIPine 2-0 Yes 5mg Take 5 mg Un [place] 5 mg tablet 3-28 by mouth ity of 11:25: daily. [place] [address] Medical Branch multivitami Yes 1{tbl} Take 1 Un [place] n, 3-28 tablet by ity of tx-minerals 11:25: mouth [place] (COMPLETE 30 daily. Medical MULTIVITAMI Branch N) tablet amLODIPine 2-0 Yes 5mg Take 5 mg Un [place] 5 mg tablet 3-28 by mouth ity of 11:25: daily. [place] [address] Medical Branch multivitami 2021- Yes 1{tbl} Take 1 Un [place] n, 3-28 tablet by ity of tx-minerals 11:25: mouth [place] (COMPLETE 30 daily. Medical MULTIVITAMI Branch N) tablet amLODIPine 2022-0 Yes 5mg Take 5 mg Un [place] 5 mg tablet 3-28 by mouth ity of 11:25: daily. [place] [address] Medical Branch multivitami 2021-0 Yes 1{tbl} Take 1 Un [place] n, 3-28 tablet by ity of tx-minerals 11:25: mouth [place] (COMPLETE 30 daily. Medical MULTIVITAMI Branch N) tablet amLODIPine Yes 5mg Take 5 mg Un [place] 5 mg tablet 3-28 by mouth ity of 11:25: daily. [facility] Branch vibegron Yes [id number] 75mg Take 75 mg Univers (GEMTESA) 3-28 by mouth ity of 75 mg Tab 00:00: daily. [facility] Branch vibegron Yes [id number] 75mg Take 75 mg Univers (GEMTESA) 3-28 by mouth ity of 75 mg Tab 00:00: daily. Medical Branch vibegron Yes [id number] 75mg Take 75 mg Univers (GEMTESA) 3-28 by mouth ity of 75 mg Tab 00:00: daily. [facility] Branch vibegron Yes [id number] 75mg Take 75 mg Univers (GEMTESA) 3-28 by mouth ity of 75 mg Tab 00:00: daily. [facility] Branch vibegron Yes [id number] 75mg Take 75 mg Univers (GEMTESA) 3-28 by mouth ity of 75 mg Tab 00:00: daily. [facility] Branch vibegron Yes [id number] 75mg Take 75 mg Univers (GEMTESA) 3-28 by mouth ity of 75 mg Tab 00:00: daily. [facility] Branch vibegron Yes [id number] 75mg Take 75 mg Univers (GEMTESA) 3-28 by mouth ity of 75 mg Tab 00:00: daily. Medical Branch vibegron Yes [id number] 75mg Take 75 mg Univers (GEMTESA) 3-28 by mouth ity of 75 mg Tab 00:00: daily. [place] [facility] Branch vibegron 3- No [id number] 75mg Take 75 mg Univers (GEMTESA) 3-28 -27 by mouth ity o f 75 mg Tab 00:00: 00:00 daily. [place] 00 :00 Medical Branch SIMVASTATIN 2020-08 Yes [id number] TAKE 1 Univers 10 mg 1-12 TABLET BY ity of tablet 00:00: MOUTH [place] [address] EVERYDAY Medical AT BEDTIME Branch SIMVASTATIN 2020-08 Yes [id number] TAKE 1 Univers 10 mg 1-12 TABLET BY ity of tablet 00:00: MOUTH 00 EVERYDAY Medical AT BEDTIME Branch SIMVASTATIN 2020- Yes [id number] TAKE 1 Univers 10 mg 1-12 TABLET BY ity of tablet 00:00: MOUTH 00 EVERYDAY Medical AT BEDTIME Branch SIMVASTATIN 2020- Yes [id number] TAKE 1 Univers 10 mg 1-12 TABLET BY ity of tablet 00:00: MOUTH EVERYDAY Medical AT BEDTIME Branch SIMVASTATIN 2020- Yes [id number] TAKE 1 [facility] 10 mg 1-12 TABLET BY ity of tablet 00:00: MOUTH 00 EVERYDAY Medical AT BEDTIME [place] SIMVASTATIN 2020- Yes [id number] TAKE 1 [facility] 10 mg 1-12 TABLET BY ity of tablet 00:00: MOUTH EVERYDAY Medical AT BEDTIME [place] SIMVASTATIN 2020- Yes [id number] TAKE 1 [facility] 10 mg 1-12 TABLET BY ity of tablet 00:00: MOUTH EVERYDAY Medical AT ABRAZO ARROWHEAD CAMPUSTIME [place] SIMVASTATIN 2020- Yes [id number] TAKE 1 [facility] 10 mg 1-12 TABLET BY ity of tablet 00:00: MOUTH EVERYDAY Medical AT BEDTIME [place] SIMVASTATIN 2020- Yes [id number] TAKE 1 [facility] 10 mg 1-12 TABLET BY ity of tablet 00:00: MOUTH EVERYDAY Medical AT BEDTIME Branch SIMVASTATIN 2020- Yes [id number] TAKE 1 [facility] 10 mg 1-12 TABLET BY ity of tablet 00:00: MOUTH EVERYDAY Medical AT ABRAZO ARROWHEAD CAMPUSTIME [place] SIMVASTATIN 2020- Yes [id number] TAKE 1 [facility] 10 mg 1-12 TABLET BY ity of tablet 00:00: MOUTH EVERYDAY Medical AT BEDTIME Branch SIMVASTATIN 2020- Yes [id number] TAKE 1 [facility] 10 mg 1-12 TABLET BY ity of tablet 00:00: MOUTH 00 EVERYDAY Medical AT BEDTIME Branch SIMVASTATIN 2020- Yes [id number] TAKE 1 [facility] 10 mg 1-12 TABLET BY ity of tablet 00:00: MOUTH 00 EVERYDAY Medical AT BEDTIME [place] SIMVASTATIN 2020- Yes [id number] TAKE 1 [facility] 10 mg 1-12 TABLET BY ity of tablet 00:00: MOUTH EVERYDAY Medical AT BEDTIME [place] SIMVASTATIN 2020- Yes [id number] TAKE 1 [facility] 10 mg 1-12 TABLET BY ity of tablet 00:00: MOUTH [place] 00 EVERYDAY Medical AT BEDTIME Branch SIMVASTATIN 2020- Yes [id number] TAKE 1 [facility] 10 mg 1-12 TABLET BY ity of tablet 00:00: MOUTH [place] 00 EVERYDAY Medical AT BEDTIME Branch SIMVASTATIN 2020- Yes [id number] TAKE 1 Univers 10 mg 1-12 TABLET BY ity of tablet 00:00: MOUTH 00 EVERYDAY Medical AT BEDTIME Branch SIMVASTATIN 2020- Yes [id number] TAKE 1 Univers 10 mg 1-12 TABLET BY ity of tablet 00:00: MOUTH [place] EVERYDAY Medical AT BEDTIME Branch SERTRALINE 2020-08 Yes [id number] TAKE 1 U nivers 25 mg 1-10 TABLET BY ity of tablet 00:00: MOUTH [place] EVERY DAY Medical Branch ACEBUTOLOL 2020-08 Yes [id number] TAKE 1 U nivers 400 mg 1-10 CAPSULE BY ity of capsule 00:00: MOUTH [place] EVERY DAY Medical Branch SERTRALINE 2020-08 Yes [id number] TAKE 1 U nivers 25 mg 1-10 TABLET BY ity of tablet 00:00: [facility] EVERY DAY Medical Branch ACEBUTOLOL 2020-08 Yes [id number] TAKE 1 U nivers 400 mg 1-10 CAPSULE BY ity of capsule 00:00: MOUTH [place] EVERY DAY Medical Branch SERTRALINE 2020-08 Yes [id number] TAKE 1 U nivers 25 mg 1-10 TABLET BY ity of tablet 00:00: [facility] EVERY DAY Medical Branch ACEBUTOLOL 2020-08 Yes [id number] TAKE 1 U nivers 400 mg 1-10 CAPSULE BY ity of capsule 00:00: [facility] EVERY DAY Medical Branch SERTRALINE 2020-08 Yes [id number] TAKE 1 U nivers 25 mg 1-10 TABLET BY ity of tablet 00:00: MOUTH [place] EVERY DAY Medical Branch ACEBUTOLOL 2020-08 Yes [id number] TAKE 1 U nivers 400 mg 1-10 CAPSULE BY ity of capsule 00:00: [facility] EVERY DAY Medical Branch SERTRALINE 2020-08 Yes [id number] TAKE 1 U nivers 25 mg 1-10 TABLET BY ity of tablet 00:00: [facility] EVERY DAY Medical Branch ACEBUTOLOL 2020-08 Yes [id number] TAKE 1 U nivers 400 mg 1-10 CAPSULE BY ity of capsule 00:00: [facility] EVERY DAY Medical Branch SERTRALINE 2020-08 Yes [id number] TAKE 1 U nivers 25 mg 1-10 TABLET BY ity of tablet 00:00: MOUTH [place] 00 EVERY DAY Medical Branch ACEBUTOLOL 2020-08 Yes [id number] TAKE 1 U nivers 400 mg 1-10 CAPSULE BY ity of capsule 00:00: MOUTH [place] EVERY DAY Medical Branch SERTRALINE 2020-08 Yes [id number] TAKE 1 U nivers 25 mg 1-10 TABLET BY ity of tablet 00:00: MOUTH [place] EVERY DAY Medical Branch ACEBUTOLOL 2020-08 Yes [id number] TAKE 1 U nivers 400 mg 1-10 CAPSULE BY ity of capsule 00:00: MOUTH [place] EVERY DAY Medical Branch SERTRALINE 2020-08 Yes [id number] TAKE 1 U nivers 25 mg 1-10 TABLET BY ity of tablet 00:00: MOUTH [place] 00 EVERY DAY Medical Branch ACEBUTOLOL 2020-08 Yes [id number] TAKE 1 U nivers 400 mg 1-10 CAPSULE BY ity of capsule 00:00: MOUTH [place] 00 EVERY DAY Medical Branch SERTRALINE 2020-08 Yes [id number] TAKE 1 U nivers 25 mg 1-10 TABLET BY ity of tablet 00:00: MOUTH [place] 00 EVERY DAY Medical Branch ACEBUTOLOL 2020-08 Yes [id number] TAKE 1 U nivers 400 mg 1-10 CAPSULE BY ity of capsule 00:00: MOUTH [place] 00 EVERY DAY Medical Branch SERTRALINE 2020-08 Yes [id number] TAKE 1 U nivers 25 mg 1-10 TABLET BY ity of tablet 00:00: MOUTH [place] 00 EVERY DAY Medical Branch ACEBUTOLOL 2020-08 Yes [id number] TAKE 1 U nivers 400 mg 1-10 CAPSULE BY ity of capsule 00:00: MOUTH [place] 00 EVERY DAY Medical Branch SERTRALINE 2020-08 Yes [id number] TAKE 1 U nivers 25 mg 1-10 TABLET BY ity of tablet 00:00: MOUTH [place] EVERY DAY Medical Branch ACEBUTOLOL 2020-08 Yes [id number] TAKE 1 U nivers 400 mg 1-10 CAPSULE BY ity of capsule 00:00: MOUTH [place] 00 EVERY DAY Medical Branch SERTRALINE 2020-08 Yes [id number] TAKE 1 U nivers 25 mg 1-10 TABLET BY ity of tablet 00:00: MOUTH [place] 00 EVERY DAY Medical Branch ACEBUTOLOL 2020-08 Yes [id number] TAKE 1 U nivers 400 mg 1-10 CAPSULE BY ity of capsule 00:00: MOUTH [place] 00 EVERY DAY Medical Branch SERTRALINE 2020-08 Yes [id number] TAKE 1 U nivers 25 mg 1-10 TABLET BY ity of tablet 00:00: MOUTH [place] 00 EVERY DAY Medical Branch ACEBUTOLOL 2020-08 Yes [id number] TAKE 1 U nivers 400 mg 1-10 CAPSULE BY ity of capsule 00:00: MOUTH [place] EVERY DAY Medical Branch SERTRALINE 2020-08 Yes [id number] TAKE 1 U nivers 25 mg 1-10 TABLET BY ity of tablet 00:00: MOUTH [place] 00 EVERY DAY Medical Branch ACEBUTOLOL 2020-08 Yes [id number] TAKE 1 U nivers 400 mg 1-10 CAPSULE BY ity of capsule 00:00: MOUTH [place] EVERY DAY Medical Branch SERTRALINE 2020-08 Yes [id number] TAKE 1 U nivers 25 mg 1-10 TABLET BY ity of tablet 00:00: MOUTH [place] EVERY DAY Medical Branch ACEBUTOLOL 2020-08 Yes [id number] TAKE 1 U nivers 400 mg 1-10 CAPSULE BY ity of capsule 00:00: MOUTH [place] 00 EVERY DAY Medical Branch SERTRALINE 2020-08 Yes [id number] TAKE 1 U nivers 25 mg 1-10 TABLET BY ity of tablet 00:00: MOUTH [place] 00 EVERY DAY Medical Branch ACEBUTOLOL 2020-08 Yes [id number] TAKE 1 U nivers 400 mg 1-10 CAPSULE BY ity of capsule 00:00: MOUTH [place] 00 EVERY DAY Medical Branch SERTRALINE 2020-08 Yes [id number] TAKE 1 U nivers 25 mg 1-10 TABLET BY ity of tablet 00:00: MOUTH [place] 00 EVERY DAY Medical Branch ACEBUTOLOL 2020-08 Yes [id number] TAKE 1 U nivers 400 mg 1-10 CAPSULE BY ity of capsule 00:00: MOUTH [place] 00 EVERY DAY Medical Branch SERTRALINE 2020-08 Yes [id number] TAKE 1 U nivers 25 mg 1-10 TABLET BY ity of tablet 00:00: MOUTH [place] 00 EVERY DAY Medical Branch ACEBUTOLOL 2020-08 Yes [id number] TAKE 1 U nivers 400 mg 1-10 CAPSULE BY ity of capsule 00:00: MOUTH [place] 00 EVERY DAY Medical Branch DICLOFENAC 2020-08 Yes [id number] TAKE 1 U nivers 75 mg EC 0-11 TABLET BY ity of tablet 00:00: MOUTH [place] 00 TWICE A Medical DAY WITH Branch MEALS DICLOFENAC 2020-08 Yes [id number] TAKE 1 U nivers 75 mg EC 0-11 TABLET BY ity of tablet 00:00: MOUTH [place] 00 TWICE A Medical DAY WITH Branch MEALS DICLOFENAC 2020-08 Yes [id number] TAKE 1 U nivers 75 mg EC 0-11 TABLET BY ity of tablet 00:00: MOUTH [place] 00 TWICE A Medical DAY WITH Branch MEALS DICLOFENAC 2020-08 Yes [id number] TAKE 1 U nivers 75 mg EC 0-11 TABLET BY ity of tablet 00:00: MOUTH [place] 00 TWICE A Medical DAY WITH Branch MEALS DICLOFENAC 2020-08 Yes [id number] TAKE 1 U nivers 75 mg EC 0-11 TABLET BY ity of tablet 00:00: MOUTH [place] 00 TWICE A Medical DAY WITH Branch MEALS DICLOFENAC 2020-08 Yes [id number] TAKE 1 U nivers 75 mg EC 0-11 TABLET BY ity of tablet 00:00: MOUTH [place] 00 TWICE A Medical DAY WITH Branch MEALS DICLOFENAC 2020-08 Yes [id number] TAKE 1 U nivers 75 mg EC 0-11 TABLET BY ity of tablet 00:00: MOUTH [place] 00 TWICE A Medical DAY WITH Branch MEALS DICLOFENAC 2020-08 Yes [id number] TAKE 1 U nivers 75 mg EC 0-11 TABLET BY ity of tablet 00:00: MOUTH [place] 00 TWICE A Medical DAY WITH Branch MEALS DICLOFENAC 2020-3- No [id number] TAKE 1 Univers 75 mg EC 0-11 02-27 TABLET BY ity o f tablet 00:00: 00:00 MOUTH [place] 00 :00 TWICE A Medical DAY WITH Branch MEALS losartan-hy 2020-1 Yes [id number] 1{tbl} Take 1 [facility] drochloroth 1-18 tablet by ity of iazide 00:00: mouth [place] 100-25 mg 00 daily. Medical per tablet Branch losartan-hy 2020-1 Yes [id number] 1{tbl} Take 1 [facility] drochloroth 1-18 tablet by ity of iazide 00:00: mouth [place] 100-25 mg 00 daily. Medical per tablet Branch losartan-hy 2020-1 Yes [id number] 1{tbl} Take 1 [facility] drochloroth 1-18 tablet by ity of iazide 00:00: mouth [place] 100-25 mg 00 daily. Medical per tablet Branch losartan-hy 2020- Yes [id number] 1{tbl} Take 1 [facility] drochloroth 1-18 tablet by ity of iazide 00:00: mouth [place] 100-25 mg 00 daily. Medical per tablet Branch losartan-hy 2020 Yes [id number] 1{tbl} Take 1 [facility] drochloroth 1-18 tablet by ity of iazide 00:00: mouth [place] 100-25 mg 00 daily. Medical per tablet Branch losartan-hy 2020 Yes [id number] 1{tbl} Take 1 [facility] drochloroth 1-18 tablet by ity of iazide 00:00: mouth [place] 100-25 mg 00 daily. Medical per tablet Branch losartan-hy 2020 Yes [id number] 1{tbl} Take 1 [facility] drochloroth 1-18 tablet by ity of iazide 00:00: mouth [place] 100-25 mg 00 daily. Medical per tablet Branch losartan-hy 2020 Yes [id number] 1{tbl} Take 1 [facility] drochloroth 1-18 tablet by ity of iazide 00:00: mouth [place] 100-25 mg 00 daily. Medical per tablet Branch losartan-hy 2019-08 Yes [id number] 1{tbl} Take 1 [facility] drochloroth 1-18 tablet by ity of iazide 00:00: mouth [place] 100-25 mg 00 daily. Medical per tablet Branch losartan-hy 2020 Yes [id number] 1{tbl} Take 1 [facility] drochloroth 1-18 tablet by ity of iazide 00:00: mouth [place] 100-25 mg 00 daily. Medical per tablet Branch losartan-hy 2020- Yes [id number] 1{tbl} Take 1 [facility] drochloroth 1-18 tablet by ity of iazide 00:00: mouth [place] 100-25 mg 00 daily. Medical per tablet Branch losartan-hy 2020 Yes [id number] 1{tbl} Take 1 [facility] drochloroth 1-18 tablet by ity of iazide 00:00: mouth [place] 100-25 mg 00 daily. Medical per tablet Branch losartan-hy 2020 Yes [id number] 1{tbl} Take 1 [facility] drochloroth 1-18 tablet by ity of iazide 00:00: mouth [place] 100-25 mg 00 daily. Medical per tablet Branch losartan-hy 2020 Yes [id number] 1{tbl} Take 1 [facility] drochloroth 1-18 tablet by ity of iazide 00:00: mouth [place] 100-25 mg 00 daily. Medical per tablet Branch losartan-hy 2019-08 Yes [id number] 1{tbl} Take 1 [facility] drochloroth 1-18 tablet by ity of iazide 00:00: mouth [place] 100-25 mg 00 daily. Medical per tablet Branch losartan-hy 2019-08 Yes [id number] 1{tbl} Take 1 [facility] drochloroth 1-18 tablet by ity of iazide 00:00: mouth [place] 100-25 mg 00 daily. Medical per tablet Branch losartan-hy 2019-08 Yes [id number] 1{tbl} Take 1 [facility] drochloroth 1-18 tablet by ity of iazide 00:00: mouth [place] 100-25 mg 00 daily. Medical per tablet Branch losartan-hy 2019-08 Yes [id number] 1{tbl} Take 1 [facility] drochloroth 1-18 tablet by ity of iazide 00:00: mouth [place] 100-25 mg 00 daily. Medical per tablet Branch VIT A/VIT 2018-08 Yes 1{tbl} Take 1 Univ ers C/VIT 1-11 tablet by ity of E/ZINC/RONIT 11:18: mouth [place] [facility] (OCUVITE 44 daily. Medica l PRESERVISIO Branch N ORAL) cholecalcif 2018-08 Yes 5000U Take 5,000 [facility] kiki, 1-11 Units by ity of vitamin D3, 11:18: mouth [place] (VITAMIN 44 daily. Medical D3) 1,000 Branch unit tablet Fish 2018-08 Yes 2{capsu Take 2 Univers Oil-DHA-EPA 1-11 le} capsules ity of 1,200-144-2 11:18: by mouth [place] 16 mg Cap 44 daily. Medical Branch gluc-paul-m 2018-08 Yes 2{tbl} Take 2 Un willem sm#1-C-alhaji 1-11 tablets by it y of -luca-bor 11:18: mouth [place] (OSTEO 44 daily. Medical BI-FLEX Branch TRIPLE STRENGTH) 750 mg-644 mg- 30 mg-1 mg Tab VIT A/VIT 2018-08 Yes 1{tbl} Take 1 Univ ers C/VIT 1-11 tablet by ity of E/ZINC/RONIT 11:18: mouth [place] [facility] (OCUVITE 44 daily. Medica l PRESERVISIO Branch N ORAL) cholecalcif 2018-08 Yes 5000U Take 5,000 Univers kiki, 1-11 Units by ity of vitamin D3, 11:18: mouth [place] (VITAMIN 44 daily. Medical D3) 1,000 Branch unit tablet Fish 2018-08 Yes 2{capsu Take 2 Univers Oil-DHA-EPA 1-11 le} capsules ity [place] 200144-2 11:18: [place] 16 [place] Cap 44 daily. Medical Branch gluc-paul-m 2018-08 Yes 2{tbl} Take 2 Un willem sm#1-C-alhaji 1-11 tablets by it y of -luca-bor 11:18: mouth [place] (OSTEO 44 daily. Medical BI-FLEX Branch TRIPLE STRENGTH) 750 mg-644 mg- 30 mg-1 mg Tab VIT A/VIT 2018-08 Yes 1{tbl} Take 1 Univ ers C/VIT 1-11 tablet by ity of E/ZINC/RONIT 11:18: mouth [place] [facility] (OCUVITE 44 daily. Medica l PRESERVISIO Branch N ORAL) cholecalcif 2018-08 Yes 5000U Take 5,000 Univers kiki, 1-11 Units by ity of vitamin D3, 11:18: mouth [place] (VITAMIN 44 daily. Medical D3) 1,000 Branch unit tablet Fish 2018-08 Yes 2{capsu Take 2 Univers Oil-DHA-EPA 1-11 le} capsules ity of 1,200-144-2 11:18: [place] 16 mg Cap 44 daily. [facility] 2018-08 Yes 2{tbl} Take 2 Un willem sm#1-C-alhaji 1-11 tablets by it y of -[place] 11:18: mouth [place] (OSTEO 44 daily. Medical BI-FLEX Branch TRIPLE STRENGTH) 750 mg-644 mg- 30 mg-1 mg Tab VIT A/VIT 2018-08 Yes 1{tbl} Take 1 Univ ers C/VIT 1-11 tablet by ity of E/ZINC/RONIT 11:18: mouth [place] [facility] (OCUVITE 44 daily. Medica l PRESERVISIO Branch N ORAL) cholecalcif 2018-08 Yes 5000U Take 5,000 Univers kiki, 1-11 Units by ity of vitamin D3, 11:18: mouth [place] (VITAMIN 44 daily. Medical D3) 1,000 Branch unit tablet Fish 2018-08 Yes 2{capsu Take 2 Univers Oil-DHA-EPA 1-11 le} capsules ity of 1,200-144-2 11:18: [place] 16 [place] Cap 44 daily. [facility] 2018-08 Yes 2{tbl} Take 2 Un willem sm#1-C-alhaji 1-11 tablets by it y of [place] 11:18: mouth [place] (OSTEO 44 daily. Medical BI-FLEX Branch TRIPLE STRENGTH) 750 mg-644 mg- 30 mg-1 mg Tab VIT A/VIT 2018-08 Yes 1{tbl} Take 1 Univ ers C/VIT 1-11 tablet by ity of E/ZINC/RONIT 11:18: mouth [place] [facility] (OCUVITE 44 daily. Medica l PRESERVISIO Branch N ORAL) cholecalcif 2018-08 Yes 5000U Take 5,000 Univers kiki, 1-11 Units by ity of vitamin D3, 11:18: mouth [place] (VITAMIN 44 daily. Medical D3) 1,000 Branch unit tablet Fish 2018-08 Yes 2{capsu Take 2 Univers Oil-DHA-EPA 1-11 le} capsules ity of 1200-144-2 11:18: [place] 16 mg Cap 44 daily. [facility] 2018-08 Yes 2{tbl} Take 2 Un willem sm#1-C-alhaji 1-11 tablets by it y -bor 11:18: mouth [place] (OSTEO 44 daily. Medical BI-FLEX [place] TRIPLE STRENGTH) 750 mg-644 mg- 30 mg-1 mg Tab VIT A/VIT 2018-08 Yes 1{tbl} Take 1 Univ ers C/VIT 1-11 tablet by ity of E/ZINC/RONIT 11:18: mouth [place] [facility] (OCUVITE 44 daily. Medica l PRESERVISIO Branch N ORAL) cholecalcif 2018-08 Yes 5000U Take 5,000 Univers kiki, 1-11 Units by ity of vitamin D3, 11:18: mouth [place] (VITAMIN 44 daily. Medical D3) 1,000 Branch unit tablet Fish 2018-08 Yes 2{capsu Take 2 Univers Oil-DHA-EPA 1-11 le} capsules ity of ,200-144-2 11:18: [place] 16 mg Cap 44 daily. [facility] 2018-08 Yes 2{tbl} Take 2 Un willem sm#1-C-alhaji 1-11 tablets by it y bor 11:18: mouth [place] (OSTEO 44 daily. Medical BI-FLEX Branch TRIPLE STRENGTH) 750 mg-644 mg- 30 mg-1 mg Tab VIT A/VIT 2018- Yes 1{tbl} Take 1 Univ ers C/VIT 1-11 tablet by ity of E/ZINC/RONIT 11:18: mouth [place] [facility] (OCUVITE 44 daily. Medica l PRESERVISIO Branch N ORAL) cholecalcif 2018-08 Yes 5000U Take 5,000 Univers kiki, 1-11 Units by ity of vitamin D3, 11:18: mouth [place] (VITAMIN 44 daily. Medical D3) 1,000 Branch unit tablet Fish 2018-08 Yes 2{capsu Take 2 Univers Oil-DHA-EPA 1-11 le} capsules ity of 144-2 11:18: by [place] 16 mg Cap 44 daily. [facility] 2018-08 Yes 2{tbl} Take 2 Un willem sm#1-C-alhaji 1-11 tablets by it bor 11:18: mouth [place] (OSTEO 44 daily. Medical BI-FLEX [place] TRIPLE STRENGTH) 750 mg-644 mg- 30 mg-1 mg Tab VIT A/VIT 2018-08 Yes 1{tbl} Take 1 Univ ers C/VIT 1-11 tablet by ity of E/ZINC/RONIT 11:18: mouth [place] [facility] (OCUVITE 44 daily. Medica l PRESERVISIO Branch N ORAL) cholecalcif 2018-08 Yes 5000U Take 5,000 Univers kiki, 1-11 Units by ity of vitamin D3, 11:18: mouth [place] (VITAMIN 44 daily. Medical D3) 1,000 Branch unit tablet Fish 2018-08 Yes 2{capsu Take 2 Univers Oil-DHA-EPA 1-11 le} capsules ity of ,200-144-2 11:18: by [place] 16 mg Cap 44 daily. [facility] 2018- Yes 2{tbl} Take 2 Un willem sm#1-C-alhaji 1-11 tablets by it y of -[place] 11:18: mouth [place] (OSTEO 44 daily. Medical BI-FLEX Branch TRIPLE STRENGTH) 750 mg-644 mg- 30 mg-1 mg Tab aspirin 81 2019-0 Yes 81mg Take 81 mg U nivers mg EC 9-12 by mouth ity of tablet 10:19: daily. [place] [address] Medical Branch aspirin 81 2019-0 Yes 81mg Take 81 mg U nivers mg EC 9-12 by mouth ity of tablet 10:19: daily. [place] [address] Medical Branch aspirin 81 2019-0 Yes 81mg Take 81 mg U nivers mg EC 9-12 by mouth ity of tablet 10:19: daily. [address] Branch aspirin 81 2019-0 Yes 81mg Take 81 mg U nivers mg EC 9-12 by mouth ity of tablet 10:19: daily. [place] [address] Medical Branch aspirin 81 2019-0 Yes 81mg Take 81 mg U nivers mg EC 9-12 by mouth ity of tablet 10:19: daily. [address] Branch aspirin 81 2019-0 Yes 81mg Take 81 mg U nivers mg EC 9-12 by mouth ity of tablet 10:19: daily. [address] Branch aspirin 81 2019-0 Yes 81mg Take 81 mg U nivers mg EC 9-12 by mouth ity of tablet 10:19: daily. [address] Branch aspirin 81 2019-0 Yes 81mg Take 81 mg U nivers mg EC 9-12 by mouth ity of tablet 10:19: daily. [address] Immunizations Ordered Filled Immunization Date Status Comments [facility] e Immunization Name Name SARS-COV-2 COVID-19 2021-08-12 Completed Unive rsity of PFIZER VACCINE 00:00:00 [facility] SARS-COV-2 COVID-19 2021-08-12 Completed Unive rsity of PFIZER VACCINE 00:00:00 [facility] SARS-COV-2 COVID-19 2021-08-12 Completed Unive rsity of PFIZER VACCINE 00:00:00 [facility] SARS-COV-2 COVID-19 2021-08-12 Completed Unive rsity of PFIZER VACCINE 00:00:00 [facility] SARS-COV-2 COVID-19 2021-08-12 Completed Unive rsity of PFIZER VACCINE 00:00:00 [facility] Branch SARS-COV-2 COVID-19 2021-08-12 Completed Unive rsity of PFIZER VACCINE 00:00:00 [facility] Branch SARS-COV-2 COVID-19 2021-08-12 Completed Unive rsity of PFIZER VACCINE 00:00:00 [facility] SARS-COV-2 COVID-19 2021-08-12 Completed Unive rsity of PFIZER VACCINE 00:00:00 [facility] SARS-COV-2 COVID-19 2021-08-12 Completed Unive rsity of PFIZER VACCINE 00:00:00 [facility] SARS-COV-2 COVID-19 2021-08-12 Completed Unive rsity of PFIZER VACCINE 00:00:00 [facility] SARS-COV-2 COVID-19 2021-08-12 Completed Unive rsity of PFIZER VACCINE 00:00:00 [facility] SARS-COV-2 COVID-19 2021-08-12 Completed Unive rsity of PFIZER VACCINE 00:00:00 [facility] SARS-COV-2 COVID-19 2021-08-12 Completed Unive rsity of PFIZER VACCINE 00:00:00 [facility] SARS-COV-2 COVID-19 2021-08-12 Completed Unive rsity of PFIZER VACCINE 00:00:00 [facility] SARS-COV-2 COVID-19 2021-08-12 Completed Unive rsity of PFIZER VACCINE 00:00:00 [facility] SARS-COV-2 COVID-19 2021-08-12 Completed Unive rsity of PFIZER VACCINE 00:00:00 [facility] SARS-COV-2 COVID-19 2021-08-12 Completed Unive rsity of PFIZER VACCINE 00:00:00 [facility] SARS-COV-2 COVID-19 2021-08-12 Completed Unive rsity of PFIZER VACCINE 00:00:00 [facility] SARS-COV-2 COVID-19 2020-10-02 Completed Unive rsity of MODERNA VACCINE 00:00:00 [facility] SARS-COV-2 COVID-19 2020-10-02 Completed Unive rsity of MODERNA VACCINE 00:00:00 [place] [facility] SARS-COV-2 COVID-19 2020-10-02 Completed Unive rsity of MODERNA VACCINE 00:00:00 [place] [facility] SARS-COV-2 COVID-19 2020-10-02 Completed Unive rsity of MODERNA 12+ YRS 00:00:00 [place] [facility] ical VACCINE Branch SARS-COV-2 COVID-19 2020-10-02 Completed Unive rsity of MODERNA 12+ YRS 00:00:00 [place] [facility] ical VACCINE Branch SARS-COV-2 COVID-19 2020-10-02 Completed Unive rsity of MODERNA 12+ YRS 00:00:00 [place] [facility] ical VACCINE Branch SARS-COV-2 COVID-19 2020-10-02 Completed Unive rsity of MODERNA 12+ YRS 00:00:00 [place] [facility] ical VACCINE Branch SARS-COV-2 COVID-19 2020-10-02 Completed Unive rsity of MODERNA 12+ YRS 00:00:00 [place] [facility] ical VACCINE Branch SARS-COV-2 COVID-19 2020-10-02 Completed Unive rsity of MODERNA 12+ YRS 00:00:00 [place] [facility] ical VACCINE Branch SARS-COV-2 COVID-19 2020-10-02 Completed Unive rsity of MODERNA 12+ YRS 00:00:00 [place] [facility] ical VACCINE Branch SARS-COV-2 COVID-19 2020-10-02 Completed Unive rsity of MODERNA 12+ YRS 00:00:00 [place] [facility] ical VACCINE Branch SARS-COV-2 COVID-19 2020-10-02 Completed Unive rsity of MODERNA 12+ YRS 00:00:00 [place] [facility] ical VACCINE Branch SARS-COV-2 COVID-19 2020-10-02 Completed Unive rsity of MODERNA 12+ YRS 00:00:00 [place] [facility] ical VACCINE Branch SARS-COV-2 COVID-19 2020-10-02 Completed Unive rsity of MODERNA 12+ YRS 00:00:00 [place] [facility] ical VACCINE Branch SARS-COV-2 COVID-19 2020-10-02 Completed Unive rsity of MODERNA 12+ YRS 00:00:00 [place] [facility] ical VACCINE Branch SARS-COV-2 COVID-19 2020-10-02 Completed Unive rsity of MODERNA 12+ YRS 00:00:00 [place] [facility] ical VACCINE Branch SARS-COV-2 COVID-19 2020-10-02 Completed Unive rsity of MODERNA 12+ YRS 00:00:00 [place] [facility] ical VACCINE Branch SARS-COV-2 COVID-19 2020-10-02 Completed Unive rsity of MODERNA 12+ YRS 00:00:00 [place] [facility] ical VACCINE Branch SARS-COV-2 COVID-19 2020-09-04 Completed Unive rsity of MODERNA VACCINE 00:00:00 [place] [facility] SARS-COV-2 COVID-19 2020-09-04 Completed Unive rsity of MODERNA VACCINE 00:00:00 [place] [facility] SARS-COV-2 COVID-19 2020-09-04 Completed Unive rsity of MODERNA VACCINE 00:00:00 [place] [facility] SARS-COV-2 COVID-19 2020-09-04 Completed Unive rsity of MODERNA 12+ YRS 00:00:00 [place] [facility] ical VACCINE Branch SARS-COV-2 COVID-19 2020-09-04 Completed Unive rsity of MODERNA 12+ YRS 00:00:00 [place] [facility] ical VACCINE Branch SARS-COV-2 COVID-19 2020-09-04 Completed Unive rsity of MODERNA 12+ YRS 00:00:00 [place] [facility] ical VACCINE Branch SARS-COV-2 COVID-19 2020-09-04 Completed Unive rsity of MODERNA 12+ YRS 00:00:00 [place] [facility] ical VACCINE Branch SARS-COV-2 COVID-19 2020-09-04 Completed Unive rsity of MODERNA 12+ YRS 00:00:00 [place] [facility] ical VACCINE Branch SARS-COV-2 COVID-19 2020-09-04 Completed Unive rsity of MODERNA 12+ YRS 00:00:00 [place] [facility] ical VACCINE Branch SARS-COV-2 COVID-19 2020-09-04 Completed Unive rsity of MODERNA 12+ YRS 00:00:00 [place] [facility] ical VACCINE Branch SARS-COV-2 COVID-19 2020-09-04 Completed Unive rsity of MODERNA 12+ YRS 00:00:00 [place] [facility] ical VACCINE Branch SARS-COV-2 COVID-19 2020-09-04 Completed Unive rsity of MODERNA 12+ YRS 00:00:00 [place] [facility] ical VACCINE Branch SARS-COV-2 COVID-19 2020-09-04 Completed Unive rsity of MODERNA 12+ YRS 00:00:00 [place] [facility] ical VACCINE Branch SARS-COV-2 COVID-19 2020-09-04 Completed Unive rsity of MODERNA 12+ YRS 00:00:00 [place] [facility] ical VACCINE Branch SARS-COV-2 COVID-19 2020-09-04 Completed Unive rsity of MODERNA 12+ YRS 00:00:00 [place] [facility] ical VACCINE Branch SARS-COV-2 COVID-19 2020-09-04 Completed Unive rsity of MODERNA 12+ YRS 00:00:00 [place] [facility] ical VACCINE Branch SARS-COV-2 COVID-19 2020-09-04 Completed Unive rsity of MODERNA 12+ YRS 00:00:00 [place] [facility] ical VACCINE Branch SARS-COV-2 COVID-19 2020-09-04 Completed Unive rsity of MODERNA 12+ YRS 00:00:00 [facility] VACCINE Branch Influenza High Dose 2019-07-11 Completed Unive rsity of 00:00:00 [facility] Influenza High Dose 2019-07-11 Completed Unive rsity of 00:00:00 [facility] Influenza High Dose 2019-07-11 Completed Unive rsity of 00:00:00 [facility] Influenza High Dose 2019-07-11 Completed Unive rsity of 00:00:00 [facility] Influenza High Dose 2019-07-11 Completed Unive rsity of 00:00:00 [facility] Influenza High Dose 2019-07-11 Completed Unive rsity of 00:00:00 [facility] Influenza High Dose 2019-07-11 Completed Unive rsity of 00:00:00 [facility] Influenza High Dose 2019-07-11 Completed Unive rsity of 00:00:00 [facility] Influenza High Dose 2019-07-11 Completed Unive rsity of 00:00:00 [facility] Influenza High Dose 2019-07-11 Completed Unive rsity of 00:00:00 [facility] Influenza High Dose 2019-07-11 Completed Unive rsity of 00:00:00 [place] [facility] Influenza High Dose 2019-07-11 Completed Unive rsity of 00:00:00 [facility] Influenza High Dose 2019-07-11 Completed Unive rsity of 00:00:00 [facility] Influenza High Dose 2019-07-11 Completed Unive rsity of 00:00:00 [facility] Influenza High Dose 2019-07-11 Completed Unive rsity of 00:00:00 [facility] Influenza High Dose 2019-07-11 Completed Unive rsity of 00:00:00 [facility] Influenza High Dose 2019-07-11 Completed Unive rsity of 00:00:00 [facility] Influenza High Dose 2019-07-11 Completed Unive rsity of 00:00:00 [facility] Zoster(Zostavax)( 2015-06-19 Completed Unive rsity of ingles) 00:00:00 [facility] Influenza High Dose 2015-06-19 Completed Unive rsity of 00:00:00 [facility] Zoster(Zostavax)( 2015-06-19 Completed Unive rsity of ingles) 00:00:00 [facility] Influenza High Dose 2015-06-19 Completed Unive rsity of 00:00:00 [facility] Zoster(Zostavax)( 2015-06-19 Completed Unive rsity of ingles) 00:00:00 [facility] Influenza High Dose 2015-06-19 Completed Unive rsity of 00:00:00 [facility] Zoster(Zostavax)( 2015-06-19 Completed Unive rsity of ingles) 00:00:00 [facility] Influenza High Dose 2015-06-19 Completed Unive rsity of 00:00:00 [facility] Zoster(Zostavax)( 2015-06-19 Completed Unive rsity of ingles) 00:00:00 [facility] Influenza High Dose 2015-06-19 Completed Unive rsity of 00:00:00 [facility] Zoster(Zostavax)( 2015-06-19 Completed Unive rsity of ingles) 00:00:00 [facility] Influenza High Dose 2015-06-19 Completed Unive rsity of 00:00:00 [facility] Zoster(Zostavax)( 2015-06-19 Completed Unive rsity of ingles) 00:00:00 [facility] Influenza High Dose 2015-06-19 Completed Unive rsity of 00:00:00 [place] [facility] Zoster(Zostavax)( 2015-06-19 Completed Unive rsity of ingles) 00:00:00 [facility] Influenza High Dose 2015-06-19 Completed Unive rsity of 00:00:00 [facility] Zoster(Zostavax)( 2015-06-19 Completed Unive rsity of ingles) 00:00:00 [facility] Influenza High Dose 2015-06-19 Completed Unive rsity of 00:00:00 [facility] Zoster(Zostavax)( 2015-06-19 Completed Unive rsity of ingles) 00:00:00 [facility] Influenza High Dose 2015-06-19 Completed Unive rsity of 00:00:00 [facility] Zoster(Zostavax)( 2015-06-19 Completed Unive rsity of ingles) 00:00:00 [facility] Influenza High Dose 2015-06-19 Completed Unive rsity of 00:00:00 [facility] Zoster(Zostavax)( 2015-06-19 Completed Unive rsity of ingles) 00:00:00 [facility] Influenza High Dose 2015-06-19 Completed Unive rsity of 00:00:00 [facility] Zoster(Zostavax)( 2015-06-19 Completed Unive rsity of ingles) 00:00:00 [facility] Influenza High Dose 2015-06-19 Completed Unive rsity of 00:00:00 [facility] Zoster(Zostavax)( 2015-06-19 Completed Unive rsity of ingles) 00:00:00 [facility] Influenza High Dose 2015-06-19 Completed Unive rsity of 00:00:00 [facility] Zoster(Zostavax)( 2015-06-19 Completed Unive rsity of ingles) 00:00:00 [facility] Influenza High Dose 2015-06-19 Completed Unive rsity of 00:00:00 [facility] Zoster(Zostavax)( 2015-06-19 Completed Unive rsity of ingles) 00:00:00 [facility] Influenza High Dose 2015-06-19 Completed Unive rsity of 00:00:00 [place] [facility] Zoster(Zostavax)( 2015-06-19 Completed Unive rsity of ingles) 00:00:00 [facility] Influenza High Dose 2015-06-19 Completed Unive rsity of 00:00:00 [facility] Zoster(Zostavax)( 2015-06-19 Completed Unive rsity of ingles) 00:00:00 [facility] Influenza High Dose 2015-06-19 Completed Unive rsity of 00:00:00 [facility] Vital Signs Vital Name Observation Time Observation Value Comments Source Systolic blood 2023-01-05 19:02:00 159 mm[Hg] Univer sity of pressure [facility] Diastolic blood 2023-01-05 19:02:00 69 mm[Hg] Unive rsity of [facility] Heart rate 2023-01-05 19:02:00 68 /min Universi ty [facility] Body temperature 2023-01-05 19:02:00 36.89 [facility] Respiratory rate 2023-01-05 19:02:00 18 /min Univ ersity of [facility] Body height 2023-01-05 19:02:00 162.6 cm Universi ty [facility] Body weight 2023-01-05 19:02:00 76.204 kg Universi ty [facility] BMI 2023-01-05 19:02:00 28.84 kg/m2 Universi ty [facility] Systolic blood 2022-11-02 17:24:00 155 mm[Hg] Univer sity of [facility] Diastolic blood 2022-11-02 17:24:00 66 mm[Hg] Unive rsity of pressure [facility] Heart rate 2022-11-02 17:24:00 66 /min Universi ty [facility] Body temperature 2022-11-02 17:24:00 36.33 [facility] Respiratory rate 2022-11-02 17:24:00 18 /min [facility] Oxygen saturation in 2022-11-02 17:24:00 98 /min [facility] Arterial blood by [facility] Pulse oximetry Branch Body height 2022-10-31 16:49:00 162.6 cm Universi ty [facility] Body weight 2022-10-31 16:49:00 80.287 kg Universi ty of [facility] BMI 2022-10-31 16:49:00 30.38 kg/m2 Universi ty of [facility] Systolic blood 2022-10-31 16:49:00 117 mm[Hg] Univer sity of pressure [facility] Diastolic blood 2022-10-31 16:49:00 68 mm[Hg] Unive rsity of pressure [facility] Heart rate 2022-10-31 16:49:00 58 /min Universi ty of [facility] Body temperature 2022-10-31 16:49:00 37.11 Thelma Univ ersity of [facility] Respiratory rate 2022-10-31 16:49:00 18 /min Univ ersity of [facility] Body height 2022-10-31 16:49:00 162.6 cm Universi ty of [place] [facility] Body weight 2022-10-31 16:49:00 80.287 kg Universi ty of [facility] BMI 2022-10-31 16:49:00 30.38 kg/m2 Universi ty of [facility] Oxygen saturation in 2022-10-31 16:49:00 99 /min University of Arterial blood by [place] [employer] johnna Pulse oximetry Branch Systolic blood 2022-10-27 17:53:00 168 mm[Hg] Univer sity of pressure [facility] Diastolic blood 2022-10-27 17:53:00 67 mm[Hg] Unive rsity of pressure [facility] Heart rate 2022-10-27 17:53:00 68 /min Universi ty of [facility] Body temperature 2022-10-27 17:53:00 36.56 Thelma Univ ersity of [facility] Respiratory rate 2022-10-27 17:53:00 22 /min Univ ersity of [facility] Oxygen saturation in 2022-10-27 17:53:00 97 /min University of Arterial blood by [employer] johnna Pulse oximetry Branch Body height 2022-10-24 02:50:00 162.6 cm Universi ty of [facility] Body weight 2022-10-24 02:50:00 80.5 kg Universi ty of [facility] BMI 2022-10-24 02:50:00 30.46 kg/m2 Universi ty of [facility] Systolic blood 2022-08-11 16:36:00 139 mm[Hg] Univer sity of pressure [facility] Diastolic blood 2022-08-11 16:36:00 78 mm[Hg] Unive rsity of pressure [facility] Heart rate 2022-08-11 16:33:00 101 /min Universi ty of [facility] Body temperature 2022-08-11 16:33:00 36.72 Thelma Univ ersity of [facility] Respiratory rate 2022-08-11 16:33:00 18 /min Univ ersity of [facility] Body height 2022-08-11 16:33:00 162.6 cm Universi ty of [facility] Body weight 2022-08-11 16:33:00 82.827 kg Universi ty of [facility] BMI 2022-08-11 16:33:00 31.34 kg/m2 Universi ty of [facility] Systolic blood 2022-01-20 14:11:00 170 mm[Hg] Univer sity of pressure [facility] Diastolic blood 2022-01-20 14:11:00 78 mm[Hg] Unive rsity of pressure [facility] Heart rate 2022-01-20 13:49:00 65 /min Universi ty of [facility] Body temperature 2022-01-20 13:49:00 36.72 Thelma Univ ersity of [facility] Respiratory rate 2022-01-20 13:49:00 18 /min Univ ersity of [facility] Body height 2022-01-20 13:49:00 162.6 cm Universi ty of [facility] Body weight 2022-01-20 13:49:00 84.369 kg Universi ty of [facility] BMI 2022-01-20 13:49:00 31.93 kg/m2 Universi ty of [facility] Procedures Procedure Date / Time Performing Clinician Source Performed EXTERNAL PROVIDER 2023-01-27 05:01:00 [facility], [facility] Branch ASSIGNMENT OF BENEFITS 2023-01-05 18:56:41 Doctor Unassigned, No [facility] Name Medical Branch AUTHORIZATION FOR 2022-11-07 06:01:00 [facility]igned, [facility] RE[facility] OF PHI Name Medical Branch MAGNESIUM 2022-11-02 11:22:00 Feliberto Kent [facility] BASIC METABOLIC PANEL 2022-11-02 11:22:00 Feliberto Kent [facility] (NA, K, CL, CO2[facility] BUN, CREATININE, CA) CBC WITH DIFF 2022-11-02 11:22:00 Donte [facility] MAGNESIUM 2022-11-02 11:22:00 Donte [facility] BASIC METABOLIC PANEL 2022-11-02 11:22:00 Feliberto Kent [facility] (NA, K, CL, CO2, [facility] GLUCOSE, BUN, CREATININE, CA) CBC WITH DIFF 2022-11-02 11:22:00 Donte [facility] CBC WITHOUT DIFF 2022-11-01 21:09:00 Donte [facility] CBC WITHOUT DIFF 2022-11-01 21:09:00 Donte [facility] CBC WITH DIFF 2022-11-01 12:05[facility]-01 11:02:00 [facility] BASIC METABOLIC PANEL 2022-11-01 11:02:00 [facility] (NA, K, CL, CO2, Medical Branch GLUCOSE, BUN, CREATININE, CA) MAGNESIUM 2022-11-01 11:02:00 [facility] BASIC METABOLIC PANEL 2022-11-01 11:02:00 [facility] (NA, K, CL, CO2, Medical Branch GLUCOSE, BUN, CREATININE, CA) CBC WITH DIFF 2022-10-31 22:50:00 Cash [facility] CBC WITH DIFF 2022-10-31 22:50:00 Cash [facility] COLONOSCOPY 2022-10-31 18:28:00 Lowell [facility] COLONOSCOPY (ENDO) 2022-10-31 16:39:21 Bernice Paul [facility] COLONOSCOPY (ENDO) 2022-10-31 16:39:21 Bernice Paul [facility] MAGNESIUM 2022-10-31 11:23:00 Sunku, [facility] BASIC METABOLIC PANEL 2022-10-31 11:23:00 Sunku, [facility] (NA, K, CL, CO2, Medical Branch GLUCOSE, BUN, CREATININE, CA) CBC WITH DIFF 2022-10-31 11:23:00 Sunku, [facility] MAGNESIUM 2022-10-31 11:23:00 Sunku, [facility] BASIC METABOLIC PANEL 2022-10-31 11:23:00 Sunku, [facility] (NA, K, CL, CO2, Medical Branch GLUCOSE, BUN, CREATININE, CA) CBC WITH DIFF 2022-10-31 11:23:00 Sunku, [facility] CBC WITHOUT DIFF 2022-10-31 02:15:00 Sunku, [facility] CBC WITHOUT DIFF 2022-10-31 02:15:00 Sunku, [facility] HB ECG ROUTINE & RHYTHM 2022-10-30 16:12:41 Jane [facility] HB ECG ROUTINE & RHYTHM 2022-10-30 16:12:41 Jane [facility] CBC WITHOUT DIFF 2022-10-30 11:56:00 Sunku [facility] PROTHROMBIN TIME / INR 2022-10-30 11:56:00 Sunku [facility] ACTIVATED PARTIAL 2022-10-30 11:56:00 Sunku [facility] HB ABO GROUPING 2022-10-30 11:56:00 Sunku, [facility] CBC WITHOUT DIFF 2022-10-30 11:56:00 Sunku, [facility] PROTHROMBIN TIME / INR 2022-10-30 11:56:00 Sunku [facility] ACTIVATED PARTIAL 2022-10-30 11:56:00 Sunku, [facility] ABO GROUPING 2022-10-30 11:56:00 Cash [facility] COMP. METABOLIC PANEL 2022-10-30 05:13:00 [place] [facility] ([id number]) Medical Branch CBC WITH DIFF 2022-10-30 05:13:00 Paul, [facility] COMP. METABOLIC PANEL 2022-10-30 05:13:00 PaulBernice [facility] ([id number]) Medical Branch CBC WITH DIFF 2022-10-30 05:13:00 [facility] CONSENT/REFUSAL FOR 2022-10-30 04:24:38 [facility], [facility] CONSENT/REFUSAL FOR 2022-10-30 04:24:38 Doctor Unassigned, [facility] CBC WITHOUT DIFF 2022-10-27 17:52:00 Patrice [facility] MAGNESIUM 2022-10-27 10:36:00 [facility] BASIC METABOLIC PANEL 2022-10-27 10:36:00 [facility] (NA, K, CL, CO2, [facility] GLUCOSE, BUN, CREATININE, CA) CBC WITHOUT DIFF 2022-10-27 10:36:00 Patrice [facility] MAGNESIUM 2022-10-26 23:32:00 Tiffany [facility] BASIC METABOLIC PANEL 2022-10-26 23:32:00 [facility] (NA, K, CL, CO2, [facility] GLUCOSE, BUN, CREATININE, CA) CBC WITHOUT DIFF 2022-10-26 23:32:00 Patrice [facility] CBC WITHOUT DIFF 2022-10-26 17:32:00 Patrice [facility] HB ECG ROUTINE & RHYTHM 2022-10-26 13:36:21 Patrice [facility] MAGNESIUM 2022-10-26 10:10:00 [facility] 2022-10-26 10:10:00 Croie Allen [facility] HORMONE [facility] BASIC METABOLIC PANEL 2022-10-26 10:10:00 [facility] (NA, K, CL, CO2, [facility] GLUCOSE, BUN, CREATININE, CA) CBC WITHOUT DIFF 2022-10-26 10:10:00 Patrice [facility] HB ECG ROUTINE & RHYTHM 2022-10-26 09:34:49 [facility] ROUTINE & RHYTHM 2022-10-26 08:43:30 Keith [facility] CBC WITHOUT DIFF 2022-10-26 03:53:00 Patrice [facility] CBC WITHOUT DIFF 2022-10-25 20:30:00 Patrice [facility] CBC WITHOUT DIFF 2022-10-25 14:38:00 Patrice [facility] MAGNESIUM 2022-10-25 08:12:00 [facility]OL[facility]EL 2022-10-25 08:12[facility] (NA, K, CL, CO2, Medical Branch GLUCOSE, BUN, CREATININE, CA) CBC WITH DIFF 2022-10-25 08:12:00 [facility] POCT GLUCOSE (AUTOMATED) 2022-10-24 23:48:00 Rick Mckenzie [facility] CBC WITHOUT DIFF 2022-10-24 21:29[facility] 2022-10-24 08:52:00 [facility] BASIC METABOLIC PANEL 2022-10-24 08:52:00 [facility] (NA, K, CL, CO2, Medical Branch GLUCOSE, BUN, CREATININE, CA) CBC WITH DIFF 2022-10-24 08:52:00 Vane [facility] CBC WITH DIFF 2022-10-24 03:46:00 Alfonso [facility] HB ABO GROUPING 2022-10-24 03:46:00 Vane [facility] CT ANGIOGRAM 2022-10-23 22:23:21 Jonah Rick [facility] ABDOMEN/PELVIS [facility] FREE T4 2022-10-23 21:21:00 Corie Allen [facility] COMP. METABOLIC PANEL 2022-10-23 21:21:[address] [facility] ([id number]) Medical Branch CBC WITH DIFF 2022-10-23 21:21:00 Jonah Rick [facility] PROTHROMBIN TIME / INR 2022-10-23 21:21:00 Rick Mckenzie [facility] 2022-10-23 21:21:00 Jonah Rick [facility] THRMPLAS HAYLEY [facility] URINALYSIS 2022-10-23 21:21:00 Jonah Rick [facility] CONSENT/REFUSAL FOR 2022-10-23 19:50:42 Doctor Unassigned, No [facility] Name Medical Branch HOSPITAL ADMISSION 2022-10-23 06:01:00 Doctor Unassigned, No Uni versity of [facility] Medical Branch REFERRAL- 2022-09-04 06:01:00 Doctor Unassigned, No [facility] REQUEST/RESPONSE Name [facility] POCT URINALYSIS W/O 2022-08-11 00:00:00 Nelda Rodriguez [facility] SPECIFIC GRAVITY Medical Branch EXTERNAL PROVIDER 2022-02-26 05:01:00 Doctor Unassigned, No [facility] RECORDS Name Medical Branch EXTERNAL PROVIDER 2022-02-06 05:01:00 Doctor Unassigned, No [facility] RECORDS Name Medical Branch Encounters Start End Encounter Admission Attending Care Care Encounter Source Date/Time Date/Time Type Type Clinicians Facility Department ID 2023-01-27 2023-01-27 Orders Doctor KRAUSE 1.2.840.114 [id number] Univers 00:00:00 00:00:00 Only Unassigned, LUCY 350.1.13.10 [place] of [place] [facility] 4.2.7.2.686 Oliver as [id number] [address] 2023-01-05 2023-01-05 Office Michael [facility] 1.2.840.114 [id number] Univers 14:00:00 14:50:55 Visit Nelda WOODARD 350.1.13.10 i ty of [facility] [place] [id number] Ok dical NAL 098 [facility] 2023-01-05 2023-01-05 Outpatient R CALIXTO RODRIGUEZHA [facility] [id number] Univers 14:00:00 14:50:55 NELDA RODRIGUEZ lise [facility] 2023-01-05 2023-01-05 Orders Doctor JIMI 1.2.840.114 [id number] Univers 00:00:00 00:00:00 Only Unassigned, LUCY 350.1.13.10 [facility] [place] [facility] 4.2.7.2.686 [place] as [id number] [address] 2022-11-07 2022-11-07 Orders Doctor JIMI 1.2.840.114 [id number] Univers 00:00:00 00:00:00 Only Unassigned, LUCY 350.1.13.10 it[facility] [place] [facility] 4.2.7.2.686 [place] as [phone] [address] 2022-11-04 2022-11-04 Transition SERGIO [place] 1.2.840.114 [id number] Univers 00:00:00 00:00:00 of Care Marilyn ABBOTTY 350.1.13.10 it [place] [id number] [facility] 403 Branch 2022-10-29 2022-11-02 Outpatient X MARIZOL [facility] [id number] Univers 22:39:00 13:00:00 LAURENT ity [facility] 2022-10-29 2022-11-02 Emergency Bernice Paul 1.2.840.1 14 [id number] Univers 22:39:00 13:00:00 Rosa Grady LUCY 350.1.13.10 ity of NikitaLuciano [facility] 4.2.7.2.686 Laurent Sanz [phone] [facility] 100 Branch 2022-10-31 2022-10-31 Surgery Mcdowell [facility] 1.2.840.114 [id number] Univers 11:52:00 12:42:00 Lowell SIM 350.1.13.10 it y of SCIENCES 4.2.7.2.686 [place] as BLDG [phone] [facility] 020 Branch 2022-10-28 2022-10-28 Transition WhitfieldSERGIO 1.2.840.114 [id number] Univers 00:00:00 00:00:00 of Care Marilyn ABBOTTY 350.1.13.10 [place] [phone] [facility] 403 Branch 2022-10-23 2022-10-27 [facility] [id number] Univers 14:07:00 17:10:00 LAURENT ity of [facility] 2022-10-23 2022-10-27 Hospital Rick Mckenzie 1.2.840.1 [id number] Univers 14:07:00 17:10:00 Encounter Laurent Fontana 350.1.13.10 ity of HOSPITAL 4.2.7.2.686 [place] as [id number] [facility] 100 Branch 2022-09-05 2022-09-05 Telephone DarrenRUST 1.2.840.114 [id number] Univers 00:00:00 00:00:00 [facility] 350.1.13.10 it y of [place] 4.2.7.2.686 [place] as ROCIO?BLEA [phone] Ok lauren CUEVAS [facility] Branch MEDICAL OFFICE BUILDING 2022-09-04 2022-09-04 Orders Doctor JIMI 1.2.840.114 [id number] Univers 00:00:00 00:00:00 Only Unassigned, LUCY 350.1.13.10 ity of [place] [facility] 4.2.7.2.686 [place] as [id number] [address] 2022-08-11 2022-08-11 Outpatient R [facility] [id number] Univers 10:00:00 10:51:25 NELDA lise [facility] 2022-08-11 2022-08-11 Office [facility] 1.2.840.114 [id number] Univers 10:00:00 10:51:25 Visit Nelda WOODARD 350.1.13.10 i ty of [place] [id number] Ok dical REPLACED BY [facility] 098 [facility] 2022-07-28 2022-07-28 Outpatient R [facility] [id number] Univers 09:30:00 09:30:[address] [facility] 2022-07-21 2022-07-21 Outpatient R [facility] [id number] Univers 09:00:00 [facility]:00[facility] 2022-02-26 2022-02-26 Orders Doctor KRAUSE 1.2.840.114 [id number] Univers 00:00:00 00:00:00 Only Unassigned, LUCY 350.1.13.10 [facility] [place] [facility] 4.2.7.2.686 [place] as [phone] [address] 2022-02-06 2022-02-06 Orders Doctor KRAUSE 1.2.840.114 [id number] Univers 00:00:00 00:00:00 Only Unassigned, LUCY 350.1.13.10 it[facility] of [place] [facility] 4.2.7.2.686 [place] as [phone] [address] 2022-01-20 2022-01-20 Outpatient R [facility] [id number] Univers 09:00:00 09:30:[address] [facility] 2022-01-20 2022-01-20 Office [facility] 1.2.840.114 [id number] Univers 09:00:00 09:30:52 Visit Nelda WOODARD 350.1.13.10 i ty [facility] 4.2.7.2.[place] [phone] Ok dical NAL 098 [facility] 2022-01-01 2022-01-01 Orders Doctor JIMI 1.2.840.114 [id number] Univers 00:00:00 00:00:00 Only Unassigned, LUCY 350.1.13.10 it[facility] [place] [facility] 4.2.7.2.686 [place] as [phone] [address] 2021-12-23 2021-12-23 Outpatient R [facility] [id number] Univers 10:00:00 10:38:52 NELDA itlise [facility] 2021-12-23 2021-12-23 Office [facility] 1.2.840.114 [id number] Univers 10:00:00 10:38:52 Visit Nelda WOODARD 350.1.13.10 i ty [place] [phone] [facility] [address] [place] [address] 2021-12-23 2021-12-23 Outpatient R [facility] [id number] Univers 10:00:00 10:00:00 NELDA tressa [facility] 2021-12-17 2021-12-17 Orders Doctor JIMI 1.2.840.114 [id number] Univers 00:00:00 00:00:00 Only Unassigned, LUCY 350.1.13.10 it[facility] of [place] [facility] 4.2.7.2.686 [place] as [phone] [address] 2021-11-29 2021-11-29 Telephone [facility] 1.2.840.114 [id number] Univers 00:00:00 00:00:00 Nelda WOODARD 350.1.13.10 i ty of [facility] 4.2.7.2.[place] [phone] Ok dical NAL 134 [facility] 2021-11-28 2021-11-28 Refill [facility] 1.2.840.114 [id number] Univers 00:00:00 00:00:00 Nelda HEALTH 350.1.13.10 it y of [place].2.[place] DURAN [id number] [facility] [address] [place] OFFICE BUILDING 2021-11-25 2021-11-25 Outpatient [facility] [id number] Univers 11:00:00 11:54:59 NELDA ity [facility] 2021-11-25 2021-11-25 Office [facility] 1.2.840.114 [id number] Univers 11:00:00 11:54:59 Visit Nelda WOODARD 350.1.13.10 i ty [place] [phone] [facility] 098 [facility] 2021-11-25 2021-11-25 Orders Doctor JIMI 1.2.840.114 [id number] Univers 00:00:00 00:00:00 Only Unassigned, LUCY 350.1.13.10 ity of [place] [facility] 4.2.7.2.686 [place] as [phone] [address] 2021-10-30 2021-10-30 Outpatient R MANI [facility] [id number] Univers 13:30:00 13:56:52 ANTOINE chrislise [facility] 2021-10-30 2021-10-30 Office ManiRUST 1.2.840.114 [id number] Univers 13:30:00 13:56:52 Visit Antoine WOODARD 350.1.13.10 ity of [place] [phone] [facility] 204 [facility] 2021-10-06 2021-10-06 [facility] 1.2.840.114 [id number] Univers 00:00:00 00:00:00 [facility] 350.1.13.10 it y of Bg [facility] 4.2.7.2.686 [place] as PROFESSIO [phone] [facility] 044 [facility] ONE 2021-10-03 2021-10-03 [facility] DarrenRUST 1.2.840.114 [id number] Univers 00:00:00 00:00:00 [facility] 350.1.13.10 it y of [place] 4.2.7.2.686 [place] as PROFESSIO [phone] [address] OFFICE [facility] ONE 2021-10-02 2021-10-02 Juanita BanksRUST 1.2.840.114 [id number] Univers 00:00:00 00:00:00 [facility] 350.1.13.10 it y of [place] 4.2.7.2.686 [place] as PROFESSIO [phone] [address] OFFICE [facility] ONE 2021-09-05 2021-09-05 Orders Doctor JIMI 1.2.840.114 [id number] Univers 00:00:00 00:00:00 Only Unassigned, LUCY 350.1.13.10 ity of [place] [facility] 4.2.7.2.686 [place] as [phone] [address] 2021-08-09 2021-08-09 [facility] 1.2.840.114 [id number] Univers 00:00:00 00:00:00 [facility] 350.1.13.10 it y of [place] 4.2.7.2.686 [place] as PROFESSIO [phone] [address] OFFICE [facility] ONE 2021-07-12 2021-07-12 Juanita BanksRUST 1.2.840.114 [id number] Univers 00:00:00 00:00:00 [facility] 350.1.13.10 it y of [place] 4.2.7.2.686 [place] as PROFESSIO [phone] [address] OFFICE [facility] ONE 2021-07-10 2021-07-10 Juanita BanksRUST 1.2.840.114 [id number] Univers 00:00:00 00:00:00 [facility] 350.1.13.10 it y of [place] 4.2.7.2.686 [place] as PROFESSIO [phone] [facility] NAL [address] [place] [address] OFFICE [facility] ONE 2021-06-07 2021-06-07 Juanita GradyRUST 1.2.840.114 [id number] Univers 00:00:00 00:00:00 [facility] 350.1.13.10 it y of Surgical 4.2.7.2.686 [place] as Specialti [phone] Ok dical es 198 [facility] 2021-04-06 2021-04-[address] [facility] 1.2.840.114 [id number] Univers 00:00:00 00:00:00 [facility] 350.1.13.10 it y of Surgical 4.2.7.2.686 [place] as Specialti [phone] Ok dical es 198 [facility] 2021-02-28 2021-02-28 Telephone [facility] 1.2.840.114 [id number] Univers 00:00:00 00:00:00 [facility] 350.1.13.10 [facility] 4.2.7.2.686 [place] as Professio [phone] Ok dical nal 044 [facility] One 2021-02-26 2021-02-26 Orders Doctor KRAUSE 1.2.840.114 [id number] Univers 00:00:00 00:00:00 Only Unassigned, LUCY 350.1.13.10 ity of [place] [facility] 4.2.7.2.686 [place] as [phone] [address] 2021-02-08 2021-02-[address] [facility] 1.2.840.114 [id number] Univers 00:00:00 00:00:00 [facility] 350.1.13.10 it y of Surgical 4.2.7.2.686 [place] as Specialti [phone] Ok dical es 198 [facility] 2021-02-04 2021-02-04 [facility] 1.2.840.114 [id number] Univers 00:00:00 00:00:00 [facility] 350.1.13.10 it [facility] 4.2.7.2.686 [place] as Professio [phone] Ok dical nal 044 [facility] 2021-02-01 2021-02-01 Orders Doctor KRAUSE 1.2.840.114 [id number] Univers 00:00:00 00:00:00 Only Unassigned, LUCY 350.1.13.10 [facility] [place] [facility] 4.2.7.2.686 [place] as [id number] [address] 2020-12-16 2020-12-16 Refill AzucenaRUST 1.2.623.238 [id number] Univers 00:00:00 00:00:00 Liya Campbell [facility] 350.1.13.10 it y of Surgical 4.2.7.2.686 [place] Specialti [phone] Ok dical es 198 [facility] 2020-10-24 2020-10-24 Hospital [facility] 1.2.840.114 [id number] Univers 13:30:35 23:59:00 Encounter Liya Campbell [facility] 350.1.13.10 ity of Surgical 4.2.7.2.686 [place] as Specialti [phone] Ok dical es 809 [facility] 2020-10-24 2020-10-24 [facility] 1.2.538.083 [id number] Univers 13:18:08 13:47:13 Visit Liya Campbell [facility] 350.1.13.10 it y of Surgical 4.2.7.2.686 [place] as Specialti [phone] Ok dical es 198 [facility] 2020-10-24 2020-10-24 Outpatient [facility] [id number] Univers 13:30:00 13:30:00 LIYA tressa [facility] 2020-10-02 2020-10-02 Outpatient Monet YO [facility] [id number] Univers 08:20:00 08:20:00 DANITA tressa [facility] 2020-09-04 2020-09-04 Outpatient Monet YO [facility] [id number] Univers 14:40:00 14:40:00 DANITA lise [facility] 2020-07-30 2020-07-30 [facility], Adc Fam Pob I [facility] 1.2. 840.114 [id number] Univers 08:16:37 08:36:37 Visit Mary Banks [facility] 350.1.13 .10 ity of [place] 4.2.7.2.686 [place] as Professio [phone] Ok lauren [address] Office [facility] One 2020-07-30 2020-07-30 Outpatient [facility] [id number] Univers 08:20:00 08:20:00 [facility] 2020-07-18 2020-07-18 Office [facility] 1.2.840.114 [id number] Univers 12:53:06 13:08:06 Visit [facility] 350.1.13.10 it y of [place] 4.2.7.2.686 [place] as Professio [phone] [address] Office [facility] 2020-07-18 2020-07-18 Outpatient [facility] [id number] Univers 13:00:00 13:00:00 [facility] 2020-07-18 2020-07-18 [facility] 1.2.840.114 [id number] Univers 00:00:00 00:00:00 [facility] 350.1.13.10 it y of [place] 4.2.7.2.686 [place] as Professio [phone] [address] One 2020-07-10 2020-07-10 [facility] 1.2.840.114 [id number] Univers 00:00:00 00:00:00 [facility] 350.1.13.10 it y of [place] 4.2.7.2.686 [place] as Professio [phone] [address] Office [facility] 2020-05-09 2020-05-09 [facility] 1.2.840.114 [id number] Univers 00:00:00 00:00:00 [facility] 350.1.13.10 it y of [place] 4.2.7.2.686 [place] as Professio [phone] [address] Office [facility] 2020-04-23 2020-04-23 [facility] 1.2.840.114 [id number] Univers 00:00:00 00:00:00 [facility] 350.1.13.10 it y of [place] 4.2.7.2.686 [place] as Professio [id number] Ok [facility] 044 [facility] 2020-03-12 2020-03-12 Pre Visit DarrenRUST 1.2.840.114 [id number] Univers 00:00:00 00:00:00 Outreach Mary Woodard 350.1.13.10 ity of [place].2.[place] Profess[place] [phone] Ok dical nal 044 [facility] 2020-03-01 2020-03-01 Office [facility] 1.2.840.114 [id number] Univers 10:05:28 10:20:28 Visit [facility] 350.1.13.10 it y of Surgical 4.2.7.2.686 [place] as Specialti [phone] [facility] es 198 [facility] 2020-03-01 2020-03-01 Outpatient [facility] [id number] Univers 10:15:00 10:15:00 [facility] 2020-02-28 2020-02-28 Outpatient Monet [facility] [id number] Univers 14:15:00 14:15:00 [facility] 2020-01-30 2020-01-30 Orders Doctor JIMI 1.2.840.114 [id number] Univers 00:00:00 00:00:00 Only Unassigned, LUCY 350.1.13.10 ity of [place] [facility] 4.2.7.2.686 [place] as [phone] [address] 2019-11-07 2019-11-07 Refill [facility] 1.2.840.114 [id number] Univers 00:00:00 00:00:00 [facility] 350.1.13.10 it y of [place] 4.2.7.2.686 [place] as Professio [phone] [address] One 2019-05-12 2019-05-12 [facility] 1.2.840.114 [id number] Univers 10:04:50 10:19:50 Visit [facility] 350.1.13.10 it y of [place] 4.2.7.2.686 [place] as Professio [phone] [address] Office Building One 2019-05-12 2019-05-12 Orders Doctor JIMI 1.2.840.114 [id number] Univers 00:00:00 00:00:00 Only Unassigned, LUCY 350.1.13.10 [facility] [place] [facility] 4.2.7.2.686 [place] as [phone] [address] 2019-03-21 2019-03-21 Orders Doctor JIMI 1.2.840.114 [id number] Univers 00:00:00 00:00:00 Only Unassigned, LUCY 350.1.13.10 ity of [place] [facility] 4.2.7.2.686 [place] as [phone] [address] Results Test Description Test Time Test Comments Results Result Comments Source BASIC METABOLIC PANEL (NA, K, CL, CO2, GLUCOSE, BUN, 2022-10 11:48:56 CREATININE, CA) Test Item Value Reference Range Interpretation Comme nts NA (test code = 6748135820) 136 mmol/L 135-145 K (test code = 2693304738) 3.9 mmol/L 3.5-5.0 S light hemolysis CL (test code = 7085617358) 107 mmol/L 98-108 CO2 TOTAL (test code = 27 mmol/L 23-31 9727736005) AGAP (test code = 2 2-16 8549661243) BUN (test code = 15 mg/dL 7-23 Slight hemo lysis 4354680548) GLUCOSE (test code = 96 mg/dL 70-110 8407416820) CREATININE (test code = 0.75 mg/dL 0.50-1.04 4414648455) CALCIUM (test code = 8.5 mg/dL 8.6-10.6 L 6863553817) eGFR (test code = 73.4 mL/min/1.73m2 6277428161) DEVORAH (test code = DEVORAH) Association of Glomerular Filtration Rate (GFR) and Staging of Kidney Disease* + + +--- +| GFR (mL/min/1.73 m2) ?| With Kidney Damage ?| ?Without Kidney Damage+ -----+ --+ ---+| ?>90 ?| ?Stage one ?| ? Normal ?+ + +-- +| ?60-89 ?| ?Stage two ?| ? Decreased GFR ? + + +--- +| ?30-59 ?| ?Stage three ?| ? Stage three ? + + +--- +| ?15-29 ?| ?Stage four ? | ? Stage four ?+ + +-- +| ?<15 (or dialysis) ? ?| ?Stage five ? | ? Stage five ?+ + +-- + *Each stage assumes the associated GFR level has been in effect for at least three months. ?Stages 1 to 5, with or without kidney disease, indicate chronic kidney disease. Notes: Determination of stages one and two (with eGFR >59mL/min/1.73 m2) requires estimation of kidney damage for at least three months as defined by structural or functional abnormalities of the kidney, manifested by either:Pathological abnormalities or Markers of kidney damage (including abnormalities in the composition of the blood or urine or abnormalities in imaging tests). Lab Interpretation (test Abnormal code = 60326-9) [facility] METABOLIC PANEL (NA, K, CL, CO2, GLUCOSE, BUN, CREATININE, CA)2022-11-01 11:48:56 Test Item Value Reference Range Interpretation Comments NA (test code = 136 mmol/L 135-145 0078711075) K (test code = 3.9 mmol/L 3.5-5.0 Slight 4974108369) hemolysis CL (test code = 107 mmol/L 98-108 6555426410) CO2 TOTAL (test code 27 mmol/L 23-31 = 9849018242) AGAP (test code = 2 2-16 6283988512) BUN (test code = 15 mg/dL 7-23 Slight 1434760834) hemolysis GLUCOSE (test code = 96 mg/dL 70-110 7378344827) CREATININE (test code 0.75 mg/dL 0.50-1.04 = 6524801491) CALCIUM (test code = 8.5 mg/dL 8.6-10.6 L 3883540044) eGFR (test code = 73.4 mL/min/1.73m2 8005194494) DEVORAH (test code = DEVORAH) Association of Glomerular Filtration Rate (GFR) and Staging of Kidney Disease* + -----+ --------+ +| GFR (mL/min/1.73 m2) ?| With Kidney Damage ?| ?Without Kidney Damage+ +------- +---- --+| ?>90 ?| ?Stage one ?| ? Normal ?+ ------+ ---------+--------- +| ?60-89 ?| ?Stage two ?| ? Decreased GFR ? + -----+ --------+ +| ?30-59 ?| ?Stage three ?| ? Stage three ? + -----+ --------+ +| ?15-29 ?| ?Stage four ? | ? Stage four ?+ ------+ ---------+--------- +| ?<15 (or dialysis) ? ?| ?Stage five ? | ? Stage five ?+ ------+ ---------+--------- + *Each stage assumes the associated GFR level has been in effect for at least three months. ?Stages 1 to 5, with or without kidney disease, indicate chronic kidney disease. Notes: Determination of stages one and two (with eGFR >59mL/min/1.73 m2) requires estimation of kidney damage for at least three months as defined by structural or functional abnormalities of the kidney, manifested by either:Pathological abnormalities or Markers of kidney damage (including abnormalities in the composition of the blood or urine or abnormalities in imaging tests). Lab Interpretation Abnormal (test code = 52304-7) [facility] Test Item Value Reference Range Interpretation Comments MAGNESIUM (test code = 5345968669) 1.9 mg/dL 1.7-2.4 Lab Interpretation (test code = Normal 50674-2) [facility] 11:34:14 Test Item Value Reference Range Interpretation Comments MAGNESIUM (test code = 2965809411) 1.9 mg/dL 1.7-2.4 Lab Interpretation (test code = Normal 13143-5) [facility] - [facility] [id number] 12:40:09 Test Item Value Reference Range Interpretation Comments ABO & RH (test code A POSITIVE Performe d at [facility] = 20) Laboratory [facility] Blood Bank3 [address] [place] [address]Osdk Free: [phone] A No. [id number] IAT (test code = Negative Performed a t [facility] 1185) Laboratory [facility] Blood [address] [address]Xgva Free: [phone] A No. [id number] [facility] [id number] 12:40:09 Test Item Value Reference Range Interpretation Comments ABO & RH (test code A POSITIVE Performe d at [facility] = 20) Laboratory [facility] Blood [address] [address]Myba Free: [phone] A No. [id number] IAT (test code = Negative Performed a t [facility] 1185) Laboratory [facility] Blood [address] [address]Ljbv Free: [phone] A No. [id number] [facility] / [id number] 12:26:33 Test Item Value Reference Range Interpretation Comments PROTIME PATIENT (test 11.3 See_Comment [Auto mated message] code = 5964-2) The system [email or web address] [facility] generated this result transmitted ref erence range: 10.1 - 1 2.6 Seconds. The re ference range was not u sed to interpret this result as normal/abnor mal. INR (test code = 6301-6) 1.0 Nor mal INR <1.1; Warfarin Therap eutic range 2.0 to 3. 0 or 2.5 to 3.5, dep ending upon the indica tions. Lab Interpretation (test Normal code = 98305-7) [facility] 12:26:33 Test Item Value Reference Range Interpretation Comments APTT Patient (test code 25 See_Comment L [Au tomated message] = 3173-2) The system [facility] h generated this result transmitted ref erence range: 26 - 36 Seconds. The reference range was not used to int erpret this result as normal/abnormal . Lab Interpretation (test Abnormal code = 73156-5) [facility] / [id number] 12:26:33 Test Item Value Reference Range Interpretation Comments PROTIME PATIENT (test 11.3 See_Comment [Auto mated message] code = 5964-2) The system [employer] generated this result transmitted ref erence range: 10.1 - 1 2.6 Seconds. The re ference range was not u sed to interpret this result as normal/abnor mal. INR (test code = 6301-6) 1.0 Nor mal INR <1.1; Warfarin Therap eutic range 2.0 to 3. 0 or 2.5 to 3.5, dep ending upon the indica tions. Lab Interpretation (test Normal code = 85594-2) [facility] 12:26:33 Test Item Value Reference Range Interpretation Comments APTT Patient (test code 25 See_Comment L [Au tomated message] = 3173-2) The system [employer] generated this result transmitted ref erence range: 26 - 36 Seconds. The reference range was not used to int erpret this result as normal/abnormal . Lab Interpretation (test Abnormal code = 13784-8) [facility] WITHOUT [id number] 12:18:09 Test Item Value Reference Range Interpretation Comments WBC (test code = 6690-2) 7.96 See_Comment [A utomated message] The system [employer] generated this result transmit luis reference range : 4.30 - 11.10 10*3/?L. The reference range was not used to interpret this result as normal/abnormal . RBC (test code = 789-8) 2.33 See_Comment L [Au tomated message] The system [employer] generated this result transmit luis reference range : 3.93 - 5.25 10* 6/?L. The reference r akiko was not used to interpret this result as normal/abnormal . HGB (test code = 718-7) 7.8 g/dL 11.6-15.0 L HCT (test code = 4544-3) 23.3 % 35.7-45.2 L MCH (test code = 785-6) 33.5 pg 25.9-32.8 H MCV (test code = 787-2) 100.0 fL 80.6-95.5 H MCHC (test code = 786-4) 33.5 g/dL 31.6-35.1 PLT (test code = 777-3) 224 See_Comment [Au tomated message] The system [facility] generated this result transmit luis reference range : 166 - 358 10*3/?L. The reference range was not used to interpret this result as normal/abnormal . MPV (test code = 10.2 fL 9.5-12.9 25597-2) RDW-CV (test code = 13.1 % 12.0-15.5 788-0) RDW-SD (test code = 45.6 fL 39.0-49.9 67764-6) NRBC x10^3 (test code = See_Comment [Au tomated message] 9831615135) The system [employer] generated this result transmit luis reference range : 10*3/?L. The reference range was not used to interpret this result as normal/abnormal . NRBC/100 WBC (test code 0.0 See_Comment [Au tomated message] = 0410028445) The system [facility] generated this result transmit luis reference range : 0.0 - 10.0 /100 WBC s. The reference r akiko was not used to interpret this result as normal/abnormal . IPF % (test code = 5572546685) Lab Interpretation (test Abnormal code = 72907-9) [facility] WITHOUT [id number] 12:18:09 Test Item Value Reference Range Interpretation Comments WBC (test code = 6690-2) 7.96 See_Comment [A utomated message] The system [facility] generated this result transmit luis reference range : 4.30 - 11.10 10*3/?L. The reference range was not used to interpret this result as normal/abnormal . RBC (test code = 789-8) 2.33 See_Comment L [Au tomated message] The system [facility] generated this result transmit luis reference range : 3.93 - 5.25 10* 6/?L. The reference r akiko was not used to interpret this result as normal/abnormal . HGB (test code = 718-7) 7.8 g/dL 11.6-15.0 L HCT (test code = 4544-3) 23.3 % 35.7-45.2 L MCH (test code = 785-6) 33.5 pg 25.9-32.8 H MCV (test code = 787-2) 100.0 fL 80.6-95.5 H MCHC (test code = 786-4) 33.5 g/dL 31.6-35.1 PLT (test code = 777-3) 224 See_Comment [Au tomated message] The system [facility] [employer] generated this result transmit luis reference range : 166 - 358 10*3/?L. The reference range was not used to interpret this result as normal/abnormal . MPV (test code = 10.2 fL 9.5-12.9 44692-9) RDW-CV (test code = 13.1 % 12.0-15.5 788-0) RDW-SD (test code = 45.6 fL 39.0-49.9 21491-4) NRBC x10^3 (test code = See_Comment [Au tomated message] 6711506926) The system [employer] generated this result transmit luis reference range : 10*3/?L. The reference range was not used to interpret this result as normal/abnormal . NRBC/100 WBC (test code 0.0 See_Comment [Au tomated message] = 1193241973) The system [facility] generated this result transmit luis reference range : 0.0 - 10.0 /100 WBC s. The reference r akiko was not used to interpret this result as normal/abnormal . IPF % (test code = 2254691361) Lab Interpretation (test Abnormal code = 13566-7) [facility] METABOLIC PANEL (05970)2022-10-30 05:53:28 Test Item Value Reference Range Interpretation Comments NA (test code = 137 mmol/L 135-145 8706391546) K (test code = 3.3 mmol/L 3.5-5.0 L 9089845510) CL (test code = 102 mmol/L 98-108 9068564335) CO2 TOTAL (test code = 26 mmol/L 23-31 3562849791) AGAP (test code = 9 2-16 9925792100) BUN (test code = 14 mg/dL 7-23 4350003213) GLUCOSE (test code = 120 mg/dL 70-110 H 2929032249) CREATININE (test code = 1.02 mg/dL 0.50-1.04 6280966013) TOTAL BILI (test code = 0.5 mg/dL 0.1-1.1 3055361271) CALCIUM (test code = 9.2 mg/dL 8.6-10.6 6426481856) T PROTEIN (test code = 6.5 g/dL 6.3-8.2 8487950790) ALBUMIN (test code = 3.6 g/dL 3.5-5.0 7892658173) ALK PHOS (test code = 48 U/L 34-122 9031091121) ALTv (test code = 20 U/L 5-35 2-6) AST(SGOT) (test code = 25 U/L 13-40 7765072931) eGFR (test code = 51.5 mL/min/1.73m2 0716277499) DEVORAH (test code = DEVORAH) Association of Glomerular Filtration Rate (GFR) and Staging of Kidney Disease* + --+ --+ ------+| GFR (mL/min/1.73 m2) ?| With Kidney Damage ?| ?Without Kidney Damage+ --------+ --------+ +| ?>90 ?| ?Stage one ?| ? Normal ?+ ---+ ---+ -------+| ?60-89 ?| ?Stage two ?| ? Decreased GFR ? + --+ --+ ------+| ?30-59 ?| ?Stage three ?| ? Stage three ? + --+ --+ ------+| ?15-29 ?| ?Stage four ? | ? Stage four ?+ ---+ ---+ -------+| ?<15 (or dialysis) ? ?| ?Stage five ? | ? Stage five ?+ ---+ ---+ -------+ *Each stage assumes the associated GFR level has been in effect for at least three months. ?Stages 1 to 5, with or without kidney disease, indicate chronic kidney disease. Notes: Determination of stages one and two (with eGFR >59mL/min/1.73 m2) requires estimation of kidney damage for at least three months as defined by structural or functional abnormalities of the kidney, manifested by either:Pathological abnormalities or Markers of kidney damage (including abnormalities in the composition of the blood or urine or abnormalities in imaging tests). Lab Interpretation Abnormal (test code = 46397-2) [facility]. METABOLIC PANEL (65980)2022-10-30 05:53:28 Test Item Value Reference Range Interpretation Comments NA (test code = 137 mmol/L 135-145 5490376584) K (test code = 3.3 mmol/L 3.5-5.0 L 5176204496) CL (test code = 102 mmol/L 98-108 1821688073) CO2 TOTAL (test code = 26 mmol/L 23-31 9204157258) AGAP (test code = 9 2-16 9654881316) BUN (test code = 14 mg/dL 7-23 1195196659) GLUCOSE (test code = 120 mg/dL 70-110 H 0048435632) CREATININE (test code = 1.02 mg/dL 0.50-1.04 9237458201) TOTAL BILI (test code = 0.5 mg/dL 0.1-1.4 8684585986) CALCIUM (test code = 9.2 mg/dL 8.6-10.6 5982753946) T PROTEIN (test code = 6.5 g/dL 6.3-8.2 1544545468) ALBUMIN (test code = 3.6 g/dL 3.5-5.0 0606361162) ALK PHOS (test code = 48 U/L 34-122 5716484665) ALTv (test code = 20 U/L 5-35 1742-6) AST(SGOT) (test code = 25 U/L 13-40 9306103809) eGFR (test code = 51.5 mL/min/1.73m2 3225489505) DEVORAH (test code = DEVORAH) Association of Glomerular Filtration Rate (GFR) and Staging of Kidney Disease* + --+ --+ ------+| GFR (mL/min/1.73 m2) ?| With Kidney Damage ?| ?Without Kidney Damage+ --------+ --------+ +| ?>90 ?| ?Stage one ?| ? Normal ?+ ---+ ---+ -------+| ?60-89 ?| ?Stage two ?| ? Decreased GFR ? + --+ --+ ------+| ?30-59 ?| ?Stage three ?| ? Stage three ? + --+ --+ ------+| ?15-29 ?| ?Stage four ? | ? Stage four ?+ ---+ ---+ -------+| ?<15 (or dialysis) ? ?| ?Stage five ? | ? Stage five ?+ ---+ ---+ -------+ *Each stage assumes the associated GFR level has been in effect for at least three months. ?Stages 1 to 5, with or without kidney disease, indicate chronic kidney disease. Notes: Determination of stages one and two (with eGFR >59mL/min/1.73 m2) requires estimation of kidney damage for at least three months as defined by structural or functional abnormalities of the kidney, manifested by either:Pathological abnormalities or Markers of kidney damage (including abnormalities in the composition of the blood or urine or abnormalities in imaging tests). Lab Interpretation Abnormal (test code = 48092-8) [facility] WITH [id number] 05:40:04 Test Item Value Reference Range Interpretation Comments WBC (test code = 9.67 See_Comment [Automated 6590-2) message] The sy stem which generated this result transmitted reference range : 4.30 - 11.10 10*3/?L. The reference range was not used to interpret this result as normal/abnormal . RBC (test code = 2.55 See_Comment L [Automated 749-8) message] The sy stem which generated this result transmitted reference range : 3.93 - 5.25 10*6/?L. The reference range was not used to interpret this result as normal/abnormal . HGB (test code = 8.5 g/dL 11.6-15.0 L 718-7) HCT (test code = 25.3 % 35.7-45.2 L 4544-3) MCV (test code = 99.2 fL 80.6-95.5 H 787-2) MCH (test code = 33.3 pg 25.9-32.8 H 785-6) MCHC (test code = 33.6 g/dL 31.6-35.1 786-4) RDW-SD (test code = 45.7 fL 39.0-49.9 24144-2) RDW-CV (test code = 13.0 % 12.0-15.5 788-0) PLT (test code = 273 See_Comment [Automated 777-3) message] The sy stem which generated this result transmitted reference range : 166 - 358 10*3/ ?L. The reference r akiko was not used to interpret this result as normal/abnormal . MPV (test code = 10.1 fL 9.5-12.9 46671-7) NRBC/100 WBC (test 0.0 See_Comment [Automat ed code = 4245687438) message] The system which generated this result transmitted reference range : 0.0 - 10.0 /100 WBCs. The refer ence range was not u sed to interpret th is result as normal/abnormal . NRBC x10^3 (test code See_Comment [Auto mated = 6119330879) message] The s ystem which generated this result transmitted reference range : 10*3/?L. The reference range was not used to interpret this result as normal/abnormal . GRAN MAT (NEUT) % 63.2 % (test code = 770-8) IMM GRAN % (test code 0.70 % = 0126665521) LYMPH % (test code = 24.9 % 736-9) MONO % (test code = 8.5 % 5905-5) EOS % (test code = 1.9 % 713-8) BASO % (test code = 0.8 % 706-2) GRAN MAT x10^3(ANC) 6.11 10*3/uL 1.88-7.09 (test code = 1777547298) IMM GRAN x10^3 (test 0.07 10*3/uL 0.00-0.06 H code = 6239705569) LYMPH x10^3 (test code 2.41 10*3/uL 1.32-3.29 = 731-0) MONO x10^3 (test code 0.82 10*3/uL 0.33-0.92 = 742-7) EOS x10^3 (test code = 0.18 10*3/uL 0.03-0.39 711-2) BASO x10^3 (test code 0.08 10*3/uL 0.01-0.07 H = 704-7) Lab Interpretation Abnormal (test code = 84764-6) [facility] WITH [id number] 05:40:04 Test Item Value Reference Range Interpretation Comments WBC (test code = 9.67 See_Comment [Automated 6690-2) message] The sy stem which generated this result transmitted reference range : 4.30 - 11.10 10*3/?L. The reference range was not used to interpret this result as normal/abnormal . RBC (test code = 2.55 See_Comment L [Automated 789-8) message] The sy stem which generated this result transmitted reference range : 3.93 - 5.25 10*6/?L. The reference range was not used to interpret this result as normal/abnormal . HGB (test code = 8.5 g/dL 11.6-15.0 L 718-7) HCT (test code = 25.3 % 35.7-45.2 L 4544-3) MCV (test code = 99.2 fL 80.6-95.5 H 787-2) MCH (test code = 33.3 pg 25.9-32.8 H 785-6) MCHC (test code = 33.6 g/dL 31.6-35.1 786-4) RDW-SD (test code = 45.7 fL 39.0-49.9 61551-7) RDW-CV (test code = 13.0 % 12.0-15.5 788-0) PLT (test code = 273 See_Comment [Automated 777-3) message] The sy stem which generated this result transmitted reference range : 166 - 358 10*3/ ?L. The reference r akiko was not used to interpret this result as normal/abnormal . MPV (test code = 10.1 fL 9.5-12.9 60070-5) NRBC/100 WBC (test 0.0 See_Comment [Automat ed code = 1169542878) message] The system which generated this result transmitted reference range : 0.0 - 10.0 /100 WBCs. The refer ence range was not u sed to interpret th is result as normal/abnormal . NRBC x10^3 (test code See_Comment [Auto mated = 0384359111) message] The s [employer] which generated this result transmitted reference range : 10*3/?L. The reference range was not used to interpret this result as normal/abnormal . GRAN MAT (NEUT) % 63.2 % (test code = 770-8) IMM GRAN % (test code 0.70 % = 2872721969) LYMPH % (test code = 24.9 % 736-9) MONO % (test code = 8.5 % 5905-5) EOS % (test code = 1.9 % 713-8) BASO % (test code = 0.8 % 706-2) GRAN MAT x10^3(ANC) 6.11 10*3/uL 1.88-7.09 (test code = 2366635726) IMM GRAN x10^3 (test 0.07 10*3/uL 0.00-0.06 H code = 6813846882) LYMPH x10^3 (test code 2.41 10*3/uL 1.32-3.29 = 731-0) MONO x10^3 (test code 0.82 10*3/uL 0.33-0.92 = 742-7) EOS x10^3 (test code = 0.18 10*3/uL 0.03-0.39 711-2) BASO x10^3 (test code 0.08 10*3/uL 0.01-0.07 H = 704-7) Lab Interpretation Abnormal (test code = 71994-5) [facility] [id number] 14:34:38 Test Item Value Reference Range Interpretation Comments FREE T4 (test code = 1.14 See_Comment [Autom ated message] 4025564398) The system [employer] generated this result transmitted ref erence range: 0.78 - 2 .20 ng/dL:. The ref erence range was not u sed to interpret this result as normal/abnor mal. Lab Interpretation (test Normal code = 78670-2) [facility] WITHOUT [id number] 20:39:45 Test Item Value Reference Range Interpretation Comments WBC (test code = 6690-2) 7.60 See_Comment [A utomated message] The system [employer] generated this result transmit luis reference range : 4.30 - 11.10 10*3/?L. The reference range was not used to interpret this result as normal/abnormal . RBC (test code = 789-8) 2.59 See_Comment L [Au tomated message] The system [employer] generated this result transmit luis reference range : 3.93 - 5.25 10* 6/?L. The reference r akiko was not used to interpret this result as normal/abnormal . HGB (test code = 718-7) 8.7 g/dL 11.6-15.0 L HCT (test code = 4544-3) 25.4 % 35.7-45.2 L MCH (test code = 785-6) 33.6 pg 25.9-32.8 H MCV (test code = 787-2) 98.1 fL 80.6-95.5 H MCHC (test code = 786-4) 34.3 g/dL 31.6-35.1 PLT (test code = 777-3) 220 See_Comment [Au tomated message] The system [employer] generated this result transmit luis reference range : 166 - 358 10*3/?L. The reference range was not used to interpret this result as normal/abnormal . MPV (test code = 10.4 fL 9.5-12.9 76636-3) RDW-CV (test code = 12.4 % 12.0-15.5 788-0) RDW-SD (test code = 44.8 fL 39.0-49.9 56844-8) NRBC x10^3 (test code = See_Comment [Au tomated message] 4549948071) The system [employer] generated this result transmit luis reference range : 10*3/?L. The reference range was not used to interpret this result as normal/abnormal . NRBC/100 WBC (test code 0.0 See_Comment [Au tomated message] = 9111609631) The system [facility] generated this result transmit luis reference range : 0.0 - 10.0 /100 WBC s. The reference r akiko was not used to interpret this result as normal/abnormal . IPF % (test code = 6906105247) Lab Interpretation (test Abnormal code = 08506-5) [facility] WITHOUT [id number] 15:01:43 Test Item Value Reference Range Interpretation Comments WBC (test code = 6690-2) 8.15 See_Comment [A utomated message] The system [employer] generated this result transmit luis reference range : 4.30 - 11.10 10*3/?L. The reference range was not used to interpret this result as normal/abnormal . RBC (test code = 789-8) 2.87 See_Comment L [Au tomated message] The system [employer] generated this result transmit luis reference range : 3.93 - 5.25 10* 6/?L. The reference r akiko was not used to interpret this result as normal/abnormal . HGB (test code = 718-7) 9.6 g/dL 11.6-15.0 L HCT (test code = 4544-3) 28.1 % 35.7-45.2 L MCH (test code = 785-6) 33.4 pg 25.9-32.8 H MCV (test code = 787-2) 97.9 fL 80.6-95.5 H MCHC (test code = 786-4) 34.2 g/dL 31.6-35.1 PLT (test code = 777-3) 230 See_Comment [Au tomated message] The system [employer] generated this result transmit luis reference range : 166 - 358 10*3/?L. The reference range was not used to interpret this result as normal/abnormal . MPV (test code = 10.5 fL 9.5-12.9 37926-2) RDW-CV (test code = 12.3 % 12.0-15.5 788-0) RDW-SD (test code = 44.0 fL 39.0-49.9 48017-6) NRBC x10^3 (test code = See_Comment [Au tomated message] 9401698611) The system [employer] generated this result transmit luis reference range : 10*3/?L. The reference range was not used to interpret this result as normal/abnormal . NRBC/100 WBC (test code 0.0 See_Comment [Au tomated message] = 6864056857) The system [facility] generated this result transmit luis reference range : 0.0 - 10.0 /100 WBC s. The reference r akiko was not used to interpret this result as normal/abnormal . IPF % (test code = 2008319177) Lab Interpretation (test Abnormal code = 64585-8) [facility] 23:50:06 Test Item Value Reference Range Interpretation Comments POCT GLU (test code = 2167537924) 134 mg/dL 70-110 H Lab Interpretation (test code = Abnormal 38997-7) [facility] ONCE [id number] 04:42:49 Test Item Value Reference Range Interpretation Comments ABO & RH (test code A POSITIVE Performe d at [facility] = 20) Laboratory Serv [facility] Blood Bank3 [address] [facility] s [address]Luqm Free: [phone] A No. [id number] IAT (test code = Negative Performed a t [facility] 1185) Laboratory Serv [facility] Blood Bank3 [address] [facility] s [address]Isjz Free: [phone] A No. [id number] [facility] METABOLIC PANEL (25293)2022-10-23 21:48:54 Test Item Value Reference Range Interpretation Comments NA (test code = 135 mmol/L 135-145 9886095003) K (test code = 4.3 mmol/L 3.5-5.0 1094767368) CL (test code = 101 mmol/L 98-108 6613882632) CO2 TOTAL (test code = 24 mmol/L 23-31 3811019843) AGAP (test code = 10 2-16 1218065134) BUN (test code = 24 mg/dL 7-23 H 8259017406) GLUCOSE (test code = 134 mg/dL 70-110 H 8050494962) CREATININE (test code = 0.89 mg/dL 0.50-1.04 3219032584) TOTAL BILI (test code = 0.7 mg/dL 0.1-1.3 0203509222) CALCIUM (test code = 9.3 mg/dL 8.6-10.6 2546394719) T PROTEIN (test code = 7.3 g/dL 6.3-8.2 3880803534) ALBUMIN (test code = 4.0 g/dL 3.5-5.0 2108818275) ALK PHOS (test code = 55 U/L 34-122 4508238636) ALTv (test code = 20 U/L 5-35 2-6) AST(SGOT) (test code = 27 U/L 13-40 0980089486) eGFR (test code = 60.3 mL/min/1.73m2 7004575542) DEVORAH (test code = DEVORAH) Association of Glomerular Filtration Rate (GFR) and Staging of Kidney Disease* + --+ --+ ------+| GFR (mL/min/1.73 m2) ?| With Kidney Damage ?| ?Without Kidney Damage+ --------+ --------+ +| ?>90 ?| ?Stage one ?| ? Normal ?+ ---+ ---+ -------+| ?60-89 ?| ?Stage two ?| ? Decreased GFR ? + --+ --+ ------+| ?30-59 ?| ?Stage three ?| ? Stage three ? + --+ --+ ------+| ?15-29 ?| ?Stage four ? | ? Stage four ?+ ---+ ---+ -------+| ?<15 (or dialysis) ? ?| ?Stage five ? | ? Stage five ?+ ---+ ---+ -------+ *Each stage assumes the associated GFR level has been in effect for at least three months. ?Stages 1 to 5, with or without kidney disease, indicate chronic kidney disease. Notes: Determination of stages one and two (with eGFR >59mL/min/1.73 m2) requires estimation of kidney damage for at least three months as defined by structural or functional abnormalities of the kidney, manifested by either:Pathological abnormalities or Markers of kidney damage (including abnormalities in the composition of the blood or urine or abnormalities in imaging tests). Lab Interpretation Abnormal (test code = 95441-2) [facility] [id number] 21:44:32 Test Item Value Reference Range Interpretation Comments APTT Patient (test 25 See_Comment [Automat ed code = 3173-2) message] The system which generated this result transmitted reference range : 23 - 38 Seconds . The reference range was not used to interpr et this result as normal/abnormal . DEVORAH (test code = DEVORAH) The [facility] patient population mean normal value for aPTT is 30 seconds. Lab Interpretation Normal (test code = 37235-0) [facility] / [id number] 21:42:30 Test Item Value Reference Range Interpretation Comments PROTIME PATIENT (test 12.5 See_Comment [Auto mated message] code = 5964-2) The system wh ich generated this result transmitted ref erence range: 12.0 - 1 4.7 Seconds. The re ference range was not u sed to interpret this result as normal/abnor mal. INR (test code = 6301-6) 1.0 Nor mal INR <1.1; Warfarin Therap eutic range 2.0 to 3. 0 or 2.5 to 3.5, dep ending upon the indica tions. Lab Interpretation (test Normal code = 69262-4) [facility] WITH [id number] 21:37:09 Test Item Value Reference Range Interpretation Comments WBC (test code = 8.74 See_Comment [Automated 6690-2) message] The sy stem which generated this result transmitted reference range : 4.30 - 11.10 10*3/?L. The reference range was not used to interpret this result as normal/abnormal . RBC (test code = 3.84 See_Comment L [Automated 349-8) message] The sy stem which generated this result transmitted reference range : 3.93 - 5.25 10*6/?L. The reference range was not used to interpret this result as normal/abnormal . HGB (test code = 12.9 g/dL 11.6-15.0 718-7) HCT (test code = 37.5 % 35.7-45.2 4544-3) MCV (test code = 97.7 fL 80.6-95.5 H 787-2) MCH (test code = 33.6 pg 25.9-32.8 H 785-6) MCHC (test code = 34.4 g/dL 31.6-35.1 786-4) RDW-SD (test code = 43.4 fL 39.0-49.9 93124-7) RDW-CV (test code = 12.1 % 12.0-15.5 788-0) PLT (test code = 261 See_Comment [Automated 777-3) message] The sy stem which generated this result transmitted reference range : 166 - 358 10*3/ ?L. The reference r akiko was not used to interpret this result as normal/abnormal . MPV (test code = 9.9 fL 9.5-12.9 93851-5) NRBC/100 WBC (test 0.0 See_Comment [Automat ed code = 5895620359) message] The system which generated this result transmitted reference range : 0.0 - 10.0 /100 WBCs. The refer ence range was not u sed to interpret th is result as normal/abnormal . NRBC x10^3 (test code See_Comment [Auto mated = [id number]) message] The s ystem which generated this result transmitted reference range : 10*3/?L. The reference range was not used to interpret this result as normal/abnormal . GRAN MAT (NEUT) % 73.6 % (test code = 770-8) IMM GRAN % (test code 0.50 % = 1828819897) LYMPH % (test code = 17.3 % 736-9) MONO % (test code = 6.9 % 5905-5) EOS % (test code = 1.1 % 713-8) BASO % (test code = 0.6 % 706-2) GRAN MAT x10^3(ANC) 6.44 10*3/uL 1.88-7.09 (test code = 2752838780) IMM GRAN x10^3 (test 0.04 10*3/uL 0.00-0.06 code = 1134141438) LYMPH x10^3 (test code 1.51 10*3/uL 1.32-3.29 = 731-0) MONO x10^3 (test code 0.60 10*3/uL 0.33-0.92 = 742-7) EOS x10^3 (test code = 0.10 10*3/uL 0.03-0.39 711-2) BASO x10^3 (test code 0.05 10*3/uL 0.01-0.07 = 704-7) Lab Interpretation Abnormal (test code = 57627-5) [facility] URINALYSIS W/O SPECIFIC [id number] 16:32:00 Test Item Value Reference Range Interpretation Comments POCT PH U (test code = 3254) 5 mg/dl 5-8 POCT U LEUK EST (test code = ++ Negative - Negative 3263) POCT U NIT (test code = 3262) + Negative - Negative POCT U PROT (test code = 3259) Negative - Negative POCT U GLU (test code = 3256) negative Negative - Negative POCT U KETONE (test code = 3258) small Negative - Negative POCT U BLD (test code = 3257) Negative - Negative [facility] SPECIFIC [id number] 16:32:00 Test Item Value Reference Range Interpretation Comments POCT PH U (test code = 3254) 5 mg/dl 5-8 POCT U LEUK EST (test code = ++ Negative - Negative 3263) POCT U NIT (test code = 3262) + Negative - Negative POCT U PROT (test code = 3259) Negative - Negative POCT U GLU (test code = 3256) negative Negative - Negative POCT U KETONE (test code = 3258) small Negative - Negative POCT U BLD (test code = 3257) Negative - Negative [facility]/O SPECIFIC [id number] 16:32:00 Test Item Value Reference Range Interpretation Comments POCT PH U (test code = 3254) 5 mg/dl 5-8 POCT U LEUK EST (test code = ++ Negative - Negative 3263) POCT U NIT (test code = 3262) + Negative - Negative POCT U PROT (test code = 3259) Negative - Negative POCT U GLU (test code = 3256) negative Negative - Negative POCT U KETONE (test code = 3258) small Negative - Negative POCT U BLD (test code = 3257) Negative - Negative [facility]"
[2023-02-03 10:57] LABS: Hematocrit 37.2 % (36.0-45.0)
[2023-02-03 11:31] VITALS: BMI 28.3
--- NOTE | 2023-02-03 11:47 | OP ---
Date of Procedure: 02/03/2023 Surgeon: Alfonso Gonzales MD Preoperative Diagnosis: Right hip arthritis. Postoperative Diagnosis: Right hip arthritis. Procedure: Right total hip arthroplasty using the [place] system. Estimated Blood Loss: 150 cc. Complications: There were no complications. Indications For Operation: Ms. Avendano is an 87-year-old female, who has had old pain related to her right hip. She has complained about this extensively and it persisted despite medications and isabel tive device and I discussed this with both her and her family and they opted for total hip arthroplas ty. She has had medical and cardiac clearance. All risks, benefits, alternatives of this have been discussed with the patient including the possibility that we may make this slightly longer as she is 87. It is felt that this hip would be somewhat more difficult than adding slight lift to her contral ateral side. She says she understands everything as presented and wishes to proceed. Description Of Procedure: The patient was taken to the operating room, placed in supine position. S adalberto anesthesia was easily obtained by Anesthesia staff. Following this, she was then rolled left s luke down and appropriately positioned using hip positioners. After this, her right lower extremity w as then prepped and draped in the usual sterile fashion for the procedure. A standard posterior late ral incision was taken down carefully through skin and soft tissues. Meticulous hemostasis being mariaa ntained using Bovie electrocautery. This leads down to the fascia. A small stab wound was made in t he fascia to ensure the correct placement of the fascial incision. This was then extended gently ove rt until near the tip of the greater trochanter where the gluteus ken muscles were encountered. They were then spread using finger pressure. After this, the sciatic nerve was palpated and protecte d as a Charnley was placed and the some bursa as well as fatty tissue was removed to allow good visua lization of the external rotators. was used to protect the medial side of the gluteus med ius and minimus as the external rotators and capsule were then taken down and tagged for later repair . This leads down to the hip. The available labrum was then removed using a curved osteotome with s ome being retained more inferiorly. The hip was then dislocated, was found to be quite arthritic and a slightly lower than normal neck cut was then performed using the saw. The ball was then sized usi ng ring gauges. After this, attention was then turned to the acetabulum and the intervening soft tis sues as well as remainder of the labrum was then removed. It was then sequentially reamed to a size 49. A size 50 cup was placed and felt to be quite solid. After this, attention was then turned to t he femur and stretch box tender was used for lateralization. This was followed by sequential broaching. Onc e the appropriate sized broach was felt to be in place, an x-ray was taken, which demonstrates good p ositioning of the cup as well as the correct sized broach. The broach was then removed and the final stem was then placed with a trial of 0 ball. As this was being placed, it appears to be hanging on t he posterior aspect of the acetabulum and shifts the acetabulum inappropriately, demonstrated the markos tabulum itself did not appear to be as solid as I would like. Therefore, decision was made to remove the stem, remove the acetabulum, remove the liner, and replace the acetabulum in a slightly differen t version making sure that it was impacted well, although this did feel stable. At this point, decis ion made to place a screw, which was placed without difficulty. The final stem was then reduced in t he acetabulum for an x-ray to be taken. The stem appeared to still be appropriately sized in positio n. Acetabular now appeared to be stable, screws appeared to be placed where desired. After this, th e liner was then placed and the trial standard ball was then relocated. This has very good stability up to full flexion past 90 degrees, full adduction and internal rotation to at least 40-45 degrees. It should be noted that extension is somewhat tight. Options at this point would include under sizi ng the stem and driving it deeper. There was already noticed a very small crack in the tip of the gr eater trochanter and she does have a very soft bone, so decision was made that this stem appears to b e appropriately placed. The neck cut is slightly smaller than normal. The other options we had were to remove the acetabulum and ream 2 sizes bigger, which I think would be oversizing and then place a dditional screw. This allows for possibility of minus head length. Because of these problems which could lead to more complications, decision was made that she will leave this probably longer than the contralateral side. This has been discussed with her previously rather than risking femur fracture or further difficulties with the acetabulum and decided to move forward with this standard ball size. It was then placed on the neck. It was then relocated and was found to be stable in all the above areas. The wound was copiously irrigated and the external rotators and capsule were repaired back to the greater trochanter. Care being taken to place the greater trochanter holes at least 1 of them d istal to the small crack in the greater trochanter, which allowed for tying of an additional suture, which does go into the gluteus medius to add as a stay for the small crack. The wound was again irri gated and the fascia was closed in a watertight fashion using heavy Vicryl sutures and again irrigate d, and skin was closed using 2-0 Vicryl followed by irrigation and rosaura. The patient was then kofi igor in Aquacel dressing and taken to recovery room. There were no complications. /OSWALDO Voice ID: [id number] Report ID: [id number]
[2023-02-03] MEDS ORDERED: HOME MED 1 EA UNK (Estradiol [Estrace] 42.5 GM Cream.Appl) VAG SCH (12:30)
[2023-02-03] MEDS ORDERED: HYDRALAZINE HCL 20 MG/ML VIAL IV PRN (12:33)
--- NOTE | 2023-02-03 12:33 | P.CNS ---
Date of Consult: 02/03/23 Reason for Consult: Medical management. Requesting Physician: Alfonso Gonzales Chief Complaint: Right hip pain status post right hip arthroplasty. History of Present Illness: Patient is an 87-year-old female with a past medical history significant for hypertension, hyperlipidemia, left breast cancer, osteoarthritis, macular degeneration right eye, diverticulosis, OAB who presents for a planned procedure with her orthopedic surgeon. Patient reported that she had a right knee replacement 4 years ago and since then patient's pain in the right hip has gradually been getting worse. Patient reported that she has been managing pain with pain medication. Patient also reports worsening weakness in the right lower extremity. Patient reported that she has been using a cane for ambulation before she started using a walker. Patient rated pain before procedure as 8/10 in severity and described pain as aching in quality. Patient currently denies any other signs and symptoms. Symptoms are aggravated or relieved by nothing. Patient agreed with her surgeon to perform a right hip arthroplasty. Patient tolerated procedure and is currently resting in bed. Allergies lidocaine [From Lidocream] Allergy (Verified 02/03/23 07:25) Hives/Rash Home Medications: Acebutolol HCl 400 mg PO DAILY 01/30/23 Amlodipine Besylate 5 mg PO DAILY 01/30/23 Bifidobacterium Infantis [Align] 4 mg PO DAILY 01/30/23 Estradiol [Estrace] 1 gm VG DIRECTED 01/30/23 Fish Oil/Dha/Epa [Fish Oil 1,200 mg Fish Oil] 2 each PO DAILY 01/30/23 Glucosamine/D3/Boswellia Myra [Osteo Bi-Flex Tablet] 2 each PO DAILY 01/30/23 Losartan/Hydrochlorothiazide [Losartan-Hctz 100-25 mg Tab] 1 each PO DAILY 01/30/23 Multivitamin 1 each PO DAILY 01/30/23 Psyllium Husk (with Sugar) [Metamucil Packet] 3.4 gm PO BEDTIME 01/30/23 Simvastatin 20 mg PO BEDTIME 01/30/23 Vibegron [Gemtesa] 75 mg PO DAILY 01/30/23 Vit A,C & E/Lutein/Minerals [I-Bruce Tablet] 1 tab PO DAILY 01/30/23 - Past Medical/Surgical History Diabetic: No -: HTN -: HLD -: Breast CA -: high cholesterol -: osteoarthritis -: macular degeneration right eye -: right knee replacement -: shoulder replacement left 2016 -: bilateral cataract surgery -: cholecystectomy -: umbilical hernia repair - Family History Father History Unknown: Yes Notes: passed at young age Mother Medical History: Other (see notes) Notes: dementia, lived to - Social History Smoking Status: Never smoker Alcohol use: Yes CD- Drugs: No Caffeine use: Yes Place of Residence: Home Review of Systems General: Unremarkable Eyes: Unremarkable ENT: Unremarkable Respiratory: Unremarkable Cardiovascular: Unremarkable Gastrointestinal: Unremarkable Genitourinary: Unremarkable Musculoskeletal: Other (Right hip pain) Integumentary: Unremarkable Neurological: Weakness (Please go to the 130) Lymphatics: Unremarkable (09/29/2010 need to be admitted at) Physical Examination Temp Pulse Resp BP Pulse Ox 96.9 F 52 16 125/58 L 95 02/03/23 11:51 02/03/23 11:51 02/03/23 11:51 02/03/23 11:51 02/03/23 11:51 General: Alert, In no apparent distress, Oriented x3, Cooperative HEENT: Atraumatic, PERRLA, Mucous membr. moist/pink, EOMI, Sclerae nonicteric Neck: Supple, 2+ carotid pulse no bruit, No LAD, Without JVD or thyroid abnormality Respiratory: Clear to auscultation bilaterally, Normal air movement Cardiovascular: No edema, Regular rate/rhythm, Normal S1 S2 Capillary refill: <2 Seconds Gastrointestinal: Normal bowel sounds, Soft and benign, No tenderness Musculoskeletal: No clubbing, No swelling, No tenderness Integumentary: No rashes, No breakdown, No significant lesion, Other (Right hip incision.) Neurological: Normal speech, Normal tone, Normal affect Lymphatics: No axilla or inguinal lymphadenopathy Laboratory Data (last 24 hrs) 02/03/23 10:39: Hgb 12.3, Hct 37.2 Conclusions/Impression: -- Right hip osteoarthritis. Status post right hip replacement. Orthopedic surgeon on board. PT eval and treat. Continue supportive care. --Acute pain\osteoarthritis. We will manage pain with current pain medication regimen. --Hyperlipidemia. Continue statin. --OAB. Continue home medication. --History of diverticulosis. Patient reported diverticular bleed first week of October 2022. Patient has not had any bleeding since then. Continue Metamucil. --Right and macular degeneration. Continue supportive care. --History of Left breast cancer. Status post left breast mastectomy per patient report. Continue supportive care. --CKD 3A. Baseline functions unknown. We will hold off on KRYSTIAN inhibitors. Avoid nephrotoxins. We will continue to monitor renal functions. --UTI POA. Culture of 01/30/2023 indicates E. coli sensitive to cefazolin. Continue antibiotics. --DVT prophylaxis with SCDs. Continue chemical prophylaxis in a.m. Physician Review: Patient Assessed, Agree with Above Assessment and Plan Critical Care: No
[2023-02-03] MEDS: HYDROCODONE/APAP 7.5/325 MG TAB PO PRN ×2 (13:18→22:50)
[2023-02-03 13:47] LABS: Hematocrit 35.7 % (36.0-45.0); Lymphocytes % 6.1 % (15.3-44.8); MCV 96.1 fL (80-100); MPV 8.4 fL (7.6-11.3); RBC Red Blood Cell Count 3.71 M/uL (3.86-4.86)
[2023-02-03 14:14] LABS: Magnesium 1.8 mg/dL (1.6-2.4); Phosphorus 4.1 mg/dL (2.5-4.9)
[2023-02-03 14:16] LABS: Albumin 2.9 g/dL (3.4-5.0); Bilirubin Total 0.4 mg/dL (0.2-1.0); Protein, Total 6.6 g/dL (6.4-8.2)
[2023-02-03] MEDS: CEFAZOLIN 1 GM in NA CHLORIDE 0.9% 50 ML IVPB SCH (16:58)
[2023-02-03 18:02] LABS: Hematocrit 37.7 % (36.0-45.0)
[2023-02-03] MEDS ORDERED: HOME MED 1 EA UNK (Simvastatin [Simvastatin] 20 MG Tablet) PO SCH (21:00)
[2023-02-03] MEDS: PSYLLIUM 1 PKT PO SCH (21:34)
[2023-02-03] MEDS: ATORVASTATIN 10 MG TAB PO SCH (21:34)
[2023-02-04] MEDS: CEFAZOLIN 1 GM in NA CHLORIDE 0.9% 50 ML IVPB SCH ×2 (01:18→08:19)
[2023-02-04 04:04] LABS: Absolute Lymphocytes (CBC) 1.3 K/uL (0.7-4.9); Hematocrit 33.8 % (36.0-45.0); MCV 95.5 fL (80-100); RBC Red Blood Cell Count 3.53 M/uL (3.86-4.86)
[2023-02-04 04:23] LABS: Potassium 3.6 mEq/L (3.5-5.1)
[2023-02-04 05:23] LABS: Blood Morphology Comment NOT SEEN (NOT SEEN); Platelet Estimate ADEQ
[2023-02-04] MEDS ORDERED: MAGNESIUM SULFATE 1 gm IVPB 1 GM/100 ML BAG IV ONE (05:52)
--- NOTE | 2023-02-04 07:05 | P.PN ---
Date of Service: 02/04/23 Subjective: Feeling better today no new / worsening problems pain near hip is well managed, improving improvement in ambulation with PT afebrile ROS: 10 point ROS as noted above, otherwise negative Physical Exam: GEN: Alert, oriented, NAD, miranda in place HEENT: Normal conjunctiva, sclera anicteric CV: Regular rate and rhythm, no edema Pulm: Nonlabored respirations on room air ABD: Soft, nontender, nondistended MSK: R hip mild tenderness Integumentary: surgical dressing intact Neuro: Normal speech, normal affect Miranda in place vitals reviewed Problem List: Right hip osteoarthritis s/p right hip replacement Orthopedic surgeon on board. PT consult continue current pain medication regimen. UTI POA. urine culture: E. coli sensitive to levaquin started on levaquin as outpatient denies any symptoms at time of diagnosis, no symptoms since admission Continue levofloxacin plan to DC miranda tomorrow am (02/05) CKD 3A. Baseline functions unknown. We will hold off on KRYSTIAN inhibitors. Avoid nephrotoxins. We will continue to monitor renal function Hyperlipidemia. Continue statin. OAB. Continue home medication. History of diverticulosis. Patient reported diverticular bleed first week of October 2022. Patient has not had any bleeding since then. Continue Metamucil. Right and macular degeneration. Continue supportive care. History of Left breast cancer. s/p left breast mastectomy per patient report. Continue supportive care. VTE: per ortho Code: Full Dispo: inpatient rehab vs SNF waiting for insurance approval
[2023-02-04] MEDS: ACEBUTOLOL HCL 400 MG PO SCH (08:17)
[2023-02-04] MEDS: BIFIDOBACTERIUM INFANTIS 4 MG PO SCH (08:17)
[2023-02-04] MEDS: BOSWELLIA SERRA PO SCH (08:18)
[2023-02-04] MEDS: HOME MED 1 EA UNK (Vibegron [Gemtesa] 75 MG Tablet) PO SCH (08:18)
[2023-02-04] MEDS: MULTIVIT W/ MINERAL TAB PO SCH (08:18)
[2023-02-04] MEDS: OCUVITE (VIT A,C & E/LUTEIN/MINERAL) TABLET PO SCH (08:18)
[2023-02-04] MEDS: D3 PO SCH (08:18)
[2023-02-04] MEDS: AMLODIPINE 5 MG TAB PO SCH (08:18)
[2023-02-04] MEDS: DOCOSAHEXANOIC AC/EPA 1000 MG PO SCH (08:18)
[2023-02-04] MEDS: HYDROCODONE/APAP 7.5/325 MG TAB PO PRN ×3 (08:18→22:27)
[2023-02-04] MEDS: GLUCOSAMINE PO SCH (08:18)
[2023-02-04] MEDS ORDERED: HOME MED 1 EA UNK (Fish Oil/Dha/Epa [Fish Oil 1,200 Mg Fish Oil] Capsule) PO SCH (09:00)
[2023-02-04] MEDS ORDERED: ENOXAPARIN 40 MG/0.4 ML SQ SCH (09:00)
[2023-02-04] MEDS ORDERED: POTASSIUM CL SA 10 MEQ TAB PO ONE (09:00)
[2023-02-04] MEDS ORDERED: HOME MED 1 EA UNK (Multivitamin [Multivitamin] Tablet) PO SCH (09:00)
[2023-02-04] MEDS: levoFLOXacin 500 MG TAB PO SCH (17:56)
[2023-02-04] MEDS: DOCUSATE NA 100 MG CAP PO PRN (19:34)
[2023-02-04] MEDS: ATORVASTATIN 10 MG TAB PO SCH (19:34)
[2023-02-04] MEDS: PSYLLIUM 1 PKT PO SCH (19:34)
[2023-02-05 03:45] LABS: Absolute Lymphocytes (CBC) 1.9 K/uL (0.7-4.9); Hematocrit 30.3 % (36.0-45.0); Lymphocytes % 15.4 % (15.3-44.8); MPV 9.1 fL (7.6-11.3); RBC Red Blood Cell Count 3.15 M/uL (3.86-4.86)
[2023-02-05 03:58] LABS: Magnesium 2.1 mg/dL (1.6-2.4); Potassium 3.9 mEq/L (3.5-5.1)
--- NOTE | 2023-02-05 07:01 | P.PN ---
Date of Service: 02/05/23 Subjective: Feeling pretty good today pain near hip is well managed, remains sore Miranda DC'd today, no trouble urinating otherwise no new / worsening problems waiting for insurance approval ROS: 10 point ROS as noted above, otherwise negative Physical Exam: GEN: Alert, oriented, NAD HEENT: Normal conjunctiva, sclera anicteric CV: Regular rate and rhythm, no edema Pulm: Nonlabored respirations on room air ABD: Soft, nontender, nondistended MSK: R hip mild tenderness Integumentary: surgical dressing intact Neuro: Normal speech, normal affect vitals reviewed Problem List: Right hip osteoarthritis s/p right hip replacement Orthopedic surgeon on board PT consult continue current pain medication regimen UTI POA urine culture: E. coli sensitive to levaquin started on levaquin as outpatient denies any symptoms at time of diagnosis, no symptoms since admission Continue levofloxacin miranda DC'd (02/05) CKD 3A. Baseline functions unknown. We will hold off on KRYSTIAN inhibitors. Avoid nephrotoxins. We will continue to monitor renal function Hyperlipidemia. Continue statin. OAB. Continue home medication. History of diverticulosis. Patient reported diverticular bleed first week of October 2022. Patient has not had any bleeding since then. Continue Metamucil. Right and macular degeneration. Continue supportive care. History of Left breast cancer. s/p left breast mastectomy per patient report. Continue supportive care. VTE: Lovenox Code: Full Dispo: inpatient rehab pending insurance approval
[2023-02-05] MEDS: HOME MED 1 EA UNK (Vibegron [Gemtesa] 75 MG Tablet) PO SCH (09:00)
[2023-02-05] MEDS: BIFIDOBACTERIUM INFANTIS 4 MG PO SCH (09:00)
[2023-02-05] MEDS: D3 PO SCH (09:00)
[2023-02-05] MEDS: ACEBUTOLOL HCL 400 MG PO SCH (09:00)
[2023-02-05] MEDS: BOSWELLIA SERRA PO SCH (09:00)
[2023-02-05] MEDS: GLUCOSAMINE PO SCH (09:00)
[2023-02-05] MEDS ORDERED: POTASSIUM CL SA 10 MEQ TAB PO ONE (09:00)
[2023-02-05] MEDS: MULTIVIT W/ MINERAL TAB PO SCH (10:06)
[2023-02-05] MEDS: levoFLOXacin 500 MG TAB PO SCH (10:06)
[2023-02-05] MEDS: OCUVITE (VIT A,C & E/LUTEIN/MINERAL) TABLET PO SCH (10:09)
[2023-02-05] MEDS: DOCOSAHEXANOIC AC/EPA 1000 MG PO SCH (10:09)
[2023-02-05] MEDS: AMLODIPINE 5 MG TAB PO SCH (10:09)
[2023-02-05] MEDS: ENOXAPARIN 30 MG/0.3 ML SQ SCH (10:10)
[2023-02-05] MEDS: HYDROCODONE/APAP 7.5/325 MG TAB PO PRN ×2 (13:57→21:02)
[2023-02-05] MEDS: ATORVASTATIN 10 MG TAB PO SCH (21:03)
[2023-02-05] MEDS: PSYLLIUM 1 PKT PO SCH (21:04)
[2023-02-06 03:43] LABS: Hematocrit 31.5 % (36.0-45.0); Lymphocytes % 19.9 % (15.3-44.8); MCV 96.2 fL (80-100); MPV 9.1 fL (7.6-11.3); RBC Red Blood Cell Count 3.28 M/uL (3.86-4.86)
[2023-02-06 03:52] LABS: Potassium 3.9 mEq/L (3.5-5.1)
--- NOTE | 2023-02-06 07:09 | P.PN ---
Date of Service: 02/06/23 Subjective: Feeling better today, able to sleep overnight pain is well managed; improving stable, waiting for insurance approval no new / worsening problems ROS: 10 point ROS as noted above, otherwise negative Physical Exam: GEN: Alert, oriented, NAD HEENT: Normal conjunctiva, sclera anicteric CV: Regular rate and rhythm, no edema Pulm: Nonlabored respirations on room air, clear bilaterally MSK: R hip mild tenderness Neuro: Normal speech, normal affect vitals reviewed Problem List: Right hip osteoarthritis s/p right hip replacement 02/03 Orthopedic surgeon on board PT consult continue current pain medication regimen UTI POA urine culture: E. coli sensitive to levaquin started on levaquin as outpatient denies any symptoms at time of diagnosis, no symptoms since admission Continue levofloxacin (02/04-) miranda DC'd (02/05) voiding without issue CKD 3A Baseline functions unknown. We will hold off on KRYSTIAN inhibitors. Avoid nephrotoxins. We will continue to monitor renal function Hyperlipidemia. Continue statin. OAB. Continue home medication. History of diverticulosis. Patient reported diverticular bleed first week of October 2022. Patient has not had any bleeding since then. Continue Metamucil. Right and macular degeneration. Continue supportive care. History of Left breast cancer. s/p left breast mastectomy per patient report. Continue supportive care. VTE: Lovenox Code: Full Dispo: inpatient rehab pending insurance approval
[2023-02-06] MEDS: ACEBUTOLOL HCL 400 MG PO SCH (08:24)
[2023-02-06] MEDS: BIFIDOBACTERIUM INFANTIS 4 MG PO SCH (08:24)
[2023-02-06] MEDS: ENOXAPARIN 30 MG/0.3 ML SQ SCH (08:24)
[2023-02-06] MEDS: levoFLOXacin 500 MG TAB PO SCH (08:25)
[2023-02-06] MEDS: DOCOSAHEXANOIC AC/EPA 1000 MG PO SCH (08:25)
[2023-02-06] MEDS: AMLODIPINE 5 MG TAB PO SCH (08:25)
[2023-02-06] MEDS: MULTIVIT W/ MINERAL TAB PO SCH (08:25)
[2023-02-06] MEDS: HYDROCODONE/APAP 7.5/325 MG TAB PO PRN ×2 (08:25→20:32)
[2023-02-06] MEDS: BOSWELLIA SERRA PO SCH (08:26)
[2023-02-06] MEDS: D3 PO SCH (08:26)
[2023-02-06] MEDS: GLUCOSAMINE PO SCH (08:26)
[2023-02-06] MEDS: HOME MED 1 EA UNK (Vibegron [Gemtesa] 75 MG Tablet) PO SCH (08:26)
[2023-02-06] MEDS: OCUVITE (VIT A,C & E/LUTEIN/MINERAL) TABLET PO SCH (08:27)
[2023-02-06] MEDS ORDERED: POTASSIUM CL SA 10 MEQ TAB PO ONE (09:00)
[2023-02-06 13:11] LABS: Specific Gravity 1.019 (1.005-1.030); Urine Bacteria <20 /HPF (<20); Urine Bilirubin NEGATIVE (Negative); Urine Blood Negative (Negative); Urine Clarity Turbid (Clear); Urine Color Yellow (Yellow); Urine Glucose NEGATIVE (Negative); Urine Mucus Slight /HPF (None Seen); Urine Protein TRACE (Negative); Urine RBC <5 /HPF (None Seen); Urine Urobilinogen Normal (Normal)
[2023-02-06] MEDS: ATORVASTATIN 10 MG TAB PO SCH (20:32)
[2023-02-06] MEDS: PSYLLIUM 1 PKT PO SCH (20:33)
[2023-02-06] MEDS: DOCUSATE NA 100 MG CAP PO PRN (21:01)
[2023-02-06] MEDS ORDERED: MORPHINE 2 MG/ML SYR IV ONE (23:40)
[2023-02-07 03:23] VITALS: O2SAT 97
--- NOTE | 2023-02-07 07:10 | P.PN ---
Date of Service: 02/07/23 Subjective: doing okay today; stable increased pain last night in upper right leg (06/09, same type/location as before just more severe), improved after a few hours otherwise no new / worsening problems ROS: 10 point ROS as noted above, otherwise negative Physical Exam: GEN: Alert, oriented, NAD HEENT: Normal conjunctiva, sclera anicteric CV: Regular rate and rhythm, no edema Pulm: Nonlabored respirations on room air, clear bilaterally MSK: R hip mild tenderness, surgical incision site without signs of infection, no surrounding swelling / no palpable hematoma Neuro: Normal speech, normal affect vitals reviewed Problem List: Right hip osteoarthritis s/p right hip replacement 02/03 Orthopedic surgeon on board PT consult continue current pain medication regimen eliquis on discharge UTI POA urine culture prior to admission: E. coli sensitive to levaquin started on levaquin as outpatient denies any symptoms at time of diagnosis, no symptoms since admission completed 7 days of levaquin miranda DC'd (02/05) voiding without issue CKD 3A Baseline functions unknown. We will hold off on KRYSTIAN inhibitors. Avoid nephrotoxins. We will continue to monitor renal function Hyperlipidemia. Continue statin. OAB. Continue home medication. History of diverticulosis. Patient reported diverticular bleed first week of October 2022. Patient has not had any bleeding since then. Continue Metamucil. Right and macular degeneration. Continue supportive care. History of Left breast cancer. s/p left breast mastectomy per patient report. Continue supportive care VTE: Lovenox Code: Full Dispo: home today with home health, PT
[2023-02-07 08:41] VITALS: BP 147/70; TEMP 98.5
[2023-02-07] MEDS: OCUVITE (VIT A,C & E/LUTEIN/MINERAL) TABLET PO SCH (08:53)
[2023-02-07] MEDS: levoFLOXacin 500 MG TAB PO SCH (08:53)
[2023-02-07] MEDS: MULTIVIT W/ MINERAL TAB PO SCH (08:54)
[2023-02-07] MEDS: DOCOSAHEXANOIC AC/EPA 1000 MG PO SCH (08:54)
[2023-02-07] MEDS: AMLODIPINE 5 MG TAB PO SCH (08:54)
[2023-02-07] MEDS: BIFIDOBACTERIUM INFANTIS 4 MG PO SCH (08:55)
[2023-02-07] MEDS: D3 PO SCH (08:55)
[2023-02-07] MEDS: BOSWELLIA SERRA PO SCH (08:55)
[2023-02-07] MEDS: ACEBUTOLOL HCL 400 MG PO SCH (08:55)
[2023-02-07] MEDS: GLUCOSAMINE PO SCH (08:55)
[2023-02-07] MEDS: HOME MED 1 EA UNK (Vibegron [Gemtesa] 75 MG Tablet) PO SCH (08:55)
[2023-02-07] MEDS ORDERED: ENOXAPARIN 40 MG/0.4 ML SQ SCH (09:00)
== END 2023-02-07 14:43 | disposition home health service (06) ==
LOC: OR 05:52 → 2ND 10:06
PROVIDERS: ADMIT Orthopaedic Surgery; ATTEND Orthopaedic Surgery
PROC: 0SR90JA Replacement of Right Hip Joint with Synthetic Substitute, Uncemented, Open Approach (ICD-10-PCS; principal; 2023-02-03 07:00)
DX: M16.11 Unilateral primary osteoarthritis, right hip (principal); I10 Essential (primary) hypertension; E78.5 Hyperlipidemia, unspecified; H35.30 Unspecified macular degeneration; Z85.3 Personal history of malignant neoplasm of breast; N32.81 Overactive bladder; K57.90 Diverticulosis of intestine, part unspecified, without perforation or abscess without bleeding; N18.31 Chronic kidney disease, stage 3a; N39.0 Urinary tract infection, site not specified; Z88.6 Allergy status to analgesic agent
CPT/HCPCS: 93005; 87088; 85025 ×5; 81001 ×2; 87086; 80048 ×3; 36415 ×4; 86900; 83735 ×2; 86850; 84100; 85610; 80061; 86901; 88304; 88311; 85730; 87077; 87186; 85018 ×2; 85014 ×2; 83036; 80053 ×2; 71046; 73501 ×2; 97110 ×3; 97116 ×5; 97161; 97530 ×4; 94760 ×5; 27130; J3475; A4216; J2704 ×2; J0171 ×2; J1200; J2001; J1650 ×4; J2250; J3010; J1100 ×2; J2270; J7120 ×2; J0690 ×3; 88305; G0378; G0379